=== PATIENT | male | born 1955 | race Caucasian/White ===

== ENCOUNTER 2021-11-07 17:04 | Inpatient (IN) | payer OTHER ==
[~2021-11-07] VITALS: Ht 182.9 cm; Wt 71.9 kg
[2021-11-07] MEDS: IV NORMAL SALINE 1000ML BAG 1,000 ML IV SCH (18:31)
[2021-11-07 19:50] VITALS: BP 96/59
[2021-11-07] MEDS: ONDANSETRON PF 4 MG/2 ML VIAL. IVP PRN (20:06)
[2021-11-07] MEDS: fentaNYL PF VIAL 100 MCG/2 ML VIAL IVP PRN (20:07)
[2021-11-07 23:12] VITALS: BP 83/56
[2021-11-08] VITALS (17 sets, daily range): BP systolic 79–97; BP diastolic 47–61
[2021-11-08] MEDS: IV NORMAL SALINE 1000ML BAG 1,000 ML IV SCH ×3 (01:37→19:53)
[2021-11-08] MEDS: fentaNYL PF VIAL 100 MCG/2 ML VIAL IVP PRN ×6 (01:43→22:08)
[2021-11-08 05:06] LABS: BASO # 0.1 x10^3/uL (0.0-0.2); BASO % 1 % (0-3); EOS % 0 % (0-3); HEMATOCRIT 20.5 % (39.0-53.0); LYMPH % 9 % (24-48); MEAN CORPUSCULAR HEMOGLOBIN 32 pg (25-35); MEAN CORPUSCULAR HGB CONC 33 g/dL (31-37); MEAN CORPUSCULAR VOLUME 95 fL (79-100); MONO # 0.9 x10^3/uL (0.0-1.1); MONO % 8 % (0-9); NEUT # 9.1 x10^3/uL (1.8-7.7); NEUT % 83 % (31-73); PLATELET COUNT 415 x10^3/uL (140-400); RED BLOOD COUNT 2.17 x10^6/uL (4.30-5.70); RED CELL DISTRIBUTION WIDTH 14.7 % (11.5-14.5)
[2021-11-08 05:12] LABS: HEMOGLOBIN 6.9 g/dL (13.0-17.5)
[2021-11-08] MEDS: ONDANSETRON PF 4 MG/2 ML VIAL. IVP PRN ×2 (05:34→11:45)
[2021-11-08 05:38] LABS: ALBUMIN 1.8 g/dL (3.4-5.0); ALBUMIN/GLOBULIN RATIO 0.5 (1.0-1.7); CALCIUM 7.6 mg/dL (8.5-10.1); CREATININE 1.7 mg/dL (0.7-1.3); GFR 40.9; POTASSIUM 4.1 mmol/L (3.5-5.1); TOTAL BILIRUBIN 0.1 mg/dL (0.2-1.0); TOTAL PROTEIN 5.3 g/dL (6.4-8.2)
[2021-11-08] MEDS ORDERED: CHOL10004 PO (07:45)
[2021-11-08] MEDS ORDERED: LISI20TA18 PO (07:45)
[2021-11-08] MEDS ORDERED: AMLO-187 PO (07:45)
[2021-11-08] MEDS ORDERED: FLU VACC QUAD 21-22 (6MOS+) PF 0.5 ML SYRINGE. VAX IM ONE (09:00)
--- NOTE | 2021-11-08 09:52 | PDOC2 ---
CONSULT Date of Service Date of Service DATE: 11/08/21 TIME: 09:39 Reason for Consult Reason for Consult: Left subclavian artery stenosis vs dissection Referring Physician Referring Physician: Dr. Bernabe Identification/Chief Complaint Chief Complaint abdominal pain History of Present Illness Reason for Visit: This is a 65 yo M with hx of colectomy and colstomy for hx of rectal cancer. He was admitted from [facility] ER for abdominal pain and acute kidney injury with Creatinine of 2.4 He deneis any recent TIA, amaurosis, stroke or weakness or numbness of an extremity. He is left handed. He denies any history of pain or ulcerations in the left hand. He denies any pain with exertion of the left hand. He is not currently taking any lipid lowering agents. He is not taking an aspirin. He reports normotension at baseline. Past Medical History Cardiovascular: No pertinent hx GI: Other (colostomy/rectal cancer) Renal/: Other (hx of ureteral injury) Past Surgical History Past Surgical History: Colon Resection Family History Family History: High Cholestrol Social History 1 pack per day ALCOHOL: rare Drugs: None Current Medications Current Medications Current Medications Ondansetron HCl (Zofran) 4 mg PRN Q6HRS PRN IVP NAUSEA/VOMITING Last administered on 11/08/21at 05:34; Start 11/07/21 at 17:45 Fentanyl Citrate (Fentanyl 2ml Vial) 50 mcg PRN Q3HRS PRN IVP PAIN Last administered on 11/08/21at 07:40; Start 11/07/21 at 17:45 Sodium Chloride 1,000 ml @ 125 mls/hr Q8H IV Last administered on 11/08/21at 01:37; Start 11/07/21 at 17:45 Influenza Virus Vaccine Quadrival (Flulaval Quad [id number] Syringe) 0.5 ml ONCE ONCE VAX IM ; Start 11/08/21 at 09:00; Stop 11/08/21 at 09:01; Status DC Active Scripts Active Reported Vitamin D3 (Vitamin D) 25 Mcg Tablet 50 Mcg PO DAILY 1,000 UNITS = 25 MCG Amlodipine Besylate 10 Mg Tablet 10 Mg PO DAILY Lisinopril 20 Mg Tablet 20 Mg PO DAILY Allergies Allergies: Coded Allergies: No Known Drug Allergies (Unverified , 11/07/21) ROS General: No: Chills, Night Sweats PSYCHOLOGICAL ROS: No: Disorientation Eyes: No Blurry vision, No Decreased vision HEENT: No: Heacaches, Visual Changes ALLERGY AND IMMUNOLOGY: No: Hives, Itchy/Watery Eyes Hematological and Lymphatic: No: Bleeding Problems, Blood Clots Respiratory: No: Cough, Hemoptysis, Orthopnea Cardiovascular: No Chest Pain, No Palpitations Gastrointestinal: Yes Abdominal Pain; No Nausea, No Vomiting Genitourinary: YES Retention Musculoskeletal: No Joint Pain, No Joint Stiffness Skin: No Nail Changes, No Pruritus Physical Exam General: Alert, Oriented X3 HEENT: Atraumatic, PERRLA Lungs: Normal air movement, Other (symmetric expansion, nonlabored) Heart: Regular rate, Other (RRR) Abdomen: Other (Colostomy with gas and stool in bag. nondistended) Extremities: No clubbing, No cyanosis, Other (2+ brachial and radial pulses bilaterally. 2+ femoral pulses bilaterally) Skin: No rashes, No significant lesion Neuro: Normal speech, Sensation intact Psych/Mental Status: Mental status NL Vitals VITALS Vital Signs Date Time Temp Pulse Resp B/P (MAP) Pulse Ox O2 Delivery O2 Flow Rate FiO2 11/08/21 08:59 98.0 106 23 80/47 98.0 11/08/21 08:50 94 Room Air Labs Labs Laboratory Tests Test 11/08/21 03:40 White Blood Count 11.0 x10^3/uL (4.0-11.0) Red Blood Count 2.17 x10^6/uL (4.30-5.70) Hemoglobin 6.9 g/dL (13.0-17.5) Hematocrit 20.5 % (39.0-53.0) Mean Corpuscular Volume 95 fL (79-100) Mean Corpuscular Hemoglobin 32 pg (25-35) Mean Corpuscular Hemoglobin Concent 33 g/dL (31-37) Red Cell Distribution Width 14.7 % (11.5-14.5) Platelet Count 415 x10^3/uL (140-400) Neutrophils (%) (Auto) 83 % (31-73) Lymphocytes (%) (Auto) 9 % (24-48) Monocytes (%) (Auto) 8 % (0-9) Eosinophils (%) (Auto) 0 % (0-3) Basophils (%) (Auto) 1 % (0-3) Neutrophils # (Auto) 9.1 x10^3/uL (1.8-7.7) Lymphocytes # (Auto) 1.0 x10^3/uL (1.0-4.8) Monocytes # (Auto) 0.9 x10^3/uL (0.0-1.1) Eosinophils # (Auto) 0.0 x10^3/uL (0.0-0.7) Basophils # (Auto) 0.1 x10^3/uL (0.0-0.2) Sodium Level 131 mmol/L (136-145) Potassium Level 4.1 mmol/L (3.5-5.1) Chloride Level 100 mmol/L (98-107) Carbon Dioxide Level 23 mmol/L (21-32) Anion Gap 8 (6-14) Blood Urea Nitrogen 64 mg/dL (8-26) Creatinine 1.7 mg/dL (0.7-1.3) Estimated GFR (Cockcroft-Gault) 40.9 BUN/Creatinine Ratio 38 (6-20) Glucose Level 86 mg/dL (70-99) Calcium Level 7.6 mg/dL (8.5-10.1) Total Bilirubin 0.1 mg/dL (0.2-1.0) Aspartate Amino Transf (AST/SGOT) 16 U/L (15-37) Alanine Aminotransferase (ALT/SGPT) 18 U/L (16-63) Alkaline Phosphatase 47 U/L (46-116) Total Protein 5.3 g/dL (6.4-8.2) Albumin 1.8 g/dL (3.4-5.0) Albumin/Globulin Ratio 0.5 (1.0-1.7) Laboratory Tests Test 11/08/21 03:40 White Blood Count 11.0 x10^3/uL (4.0-11.0) Red Blood Count 2.17 x10^6/uL (4.30-5.70) Hemoglobin 6.9 g/dL (13.0-17.5) Hematocrit 20.5 % (39.0-53.0) Mean Corpuscular Volume 95 fL (79-100) Mean Corpuscular Hemoglobin 32 pg (25-35) Mean Corpuscular Hemoglobin Concent 33 g/dL (31-37) Red Cell Distribution Width 14.7 % (11.5-14.5) Platelet Count 415 x10^3/uL (140-400) Neutrophils (%) (Auto) 83 % (31-73) Lymphocytes (%) (Auto) 9 % (24-48) Monocytes (%) (Auto) 8 % (0-9) Eosinophils (%) (Auto) 0 % (0-3) Basophils (%) (Auto) 1 % (0-3) Neutrophils # (Auto) 9.1 x10^3/uL (1.8-7.7) Lymphocytes # (Auto) 1.0 x10^3/uL (1.0-4.8) Monocytes # (Auto) 0.9 x10^3/uL (0.0-1.1) Eosinophils # (Auto) 0.0 x10^3/uL (0.0-0.7) Basophils # (Auto) 0.1 x10^3/uL (0.0-0.2) Sodium Level 131 mmol/L (136-145) Potassium Level 4.1 mmol/L (3.5-5.1) Chloride Level 100 mmol/L (98-107) Carbon Dioxide Level 23 mmol/L (21-32) Anion Gap 8 (6-14) Blood Urea Nitrogen 64 mg/dL (8-26) Creatinine 1.7 mg/dL (0.7-1.3) Estimated GFR (Cockcroft-Gault) 40.9 BUN/Creatinine Ratio 38 (6-20) Glucose Level 86 mg/dL (70-99) Calcium Level 7.6 mg/dL (8.5-10.1) Total Bilirubin 0.1 mg/dL (0.2-1.0) Aspartate Amino Transf (AST/SGOT) 16 U/L (15-37) Alanine Aminotransferase (ALT/SGPT) 18 U/L (16-63) Alkaline Phosphatase 47 U/L (46-116) Total Protein 5.3 g/dL (6.4-8.2) Albumin 1.8 g/dL (3.4-5.0) Albumin/Globulin Ratio 0.5 (1.0-1.7) Images Images I reviewed the CT images form [place] with CTA of the chest abdomen and pelvis. THere is a focal plaque in the left subclavian artery causing approximately 50% narrowing. There are no other findings of significance Assessment/Plan Assessment/Plan 1. Asymptomatic left subclavian artery stenosis 2. Acute kidney injury The patient is asymptomatic form the focal narrowing of the left subclavian artery and he has a strong pulse in the left hand his dominant hand. He has had no atheroembolic events to the left hand. Not clear to me that this is a dissection as there was concern from the reading radiologist. There is no evidence of aneurysm or other abnormality. Given there are no symptoms would recommend medical management with baby aspirin daily, smoking cessation and consideration of lipid lower agents now that we have identified asymptomatic peripheral arterial disease. Also important to maintain systolic blood pressure less that 140 for group home cardiovascular risk reduction. Will schedule follow up with repeat arterial duplex of the left arm to monitor in 4-6 months. Will continue to monitor symptoms. Patient encouraged to call should he develop exertional fatigue of the left hand. It will be important to obtain lipid profile as outpatient with goal LDL <70. AMOR LAINEZ MD Nov 08, 2021 09:52
--- NOTE | 2021-11-08 11:00 | PDOC2 ---
CONSULT Date of Consult Date of Consult DATE: 11/08/21 TIME: 10:53 Reason for Consult Reason for Consult: ERINN Referring Physician Referring Physician: JOS Identification/Chief Complaint Chief Complaint ABD PAIN Source Source: Chart review, Patient History of Present Illness Reason for Visit: THIS IS A 65 YR OLD MAN WITH ABD PAIN. ADMITTED INITIALLY AT [facility] IN [place]. CR OF 2.4. NO CKD. PT STATES THAT HE HAS NOT BEEN EATING MUCH SINCE PAST SATURDAY WHEN HE ATE A HOT DOG. SINCE THEN NO APPETITE. HE DOES HAVE AN OSTOMY AFTER RESECTION FOR RECTAL CANCER. HE HAS NOT NOTED ANY INCREASE IN HIS OSTOMY OUTPUT. CR HERE IS 1.7. NO OTHER HX REPORTED. HAD A CT AT [facility] AND INCIDENTALLY NOTED TO HAVE 50% STENOSIS OF HIS LEFT SUBCLAVIAN ARTERY BUT NO STEAL SYMPTOMS. CURRENTLY BEING EVALUATED BY VASCULAR SURGERY FOR THIS. HGB OF 6.9. FOR HIS RECTAL CANCER HE DID UNDERGO CHEMO AND RAD TX ABOUT 10 YEARS AGO Past Medical History Cardiovascular: HTN GI: Other (colostomy/rectal cancer) Heme/Onc: Cancer Renal/: No pertinent hx, Other (hx of ureteral injury) Past Surgical History Past Surgical History: Colon Resection Family History Family History: High Cholestrol Social History 1 pack per day ALCOHOL: rare Drugs: None Current Medications Current Medications Current Medications Ondansetron HCl (Zofran) 4 mg PRN Q6HRS PRN IVP NAUSEA/VOMITING Last administered on 11/08/21at 05:34; Start 11/07/21 at 17:45 Fentanyl Citrate (Fentanyl 2ml Vial) 50 mcg PRN Q3HRS PRN IVP PAIN Last administered on 11/08/21at 07:40; Start 11/07/21 at 17:45 Sodium Chloride 1,000 ml @ 125 mls/hr Q8H IV Last administered on 11/08/21at 01:37; Start 11/07/21 at 17:45 Influenza Virus Vaccine Quadrival (Flulaval Quad Syringe) 0.5 ml ONCE ONCE VAX IM ; Start 11/08/21 at 09:00; Stop 11/08/21 at 09:01; Status DC Active Scripts Active Reported Vitamin D3 (Vitamin D) 25 Mcg Tablet 50 Mcg PO DAILY 1,000 UNITS = 25 MCG Amlodipine Besylate 10 Mg Tablet 10 Mg PO DAILY Lisinopril 20 Mg Tablet 20 Mg PO DAILY Allergies Allergies: Coded Allergies: No Known Drug Allergies (Unverified , 11/07/21) ROS General: YES: Fatigue, Malaise, Appetite PSYCHOLOGICAL ROS: YES: Anxiety Eyes: Yes Decreased vision ALLERGY AND IMMUNOLOGY: YES: Seasonal Allergies Respiratory: YES: Cough Gastrointestinal: Yes Nausea, Yes Abdominal Pain Genitourinary: YES Other (OCC NOCTURIA) Musculoskeletal: Yes Muscular Weakness Neurological: Yes Weakness Skin: Yes Dry Skin Physical Exam General: Alert, Oriented X3, Cooperative, No acute distress HEENT: Atraumatic, PERRLA Lungs: Clear to auscultation Heart: Regular rate Abdomen: Normal bowel sounds, Soft, No tenderness, Other (OSTOMY BAG NOTED. SOME LIQUID STOOL NOTED) Extremities: No cyanosis Skin: No breakdown Neuro: Normal speech Psych/Mental Status: Mental status NL, Mood NL MUSCULOSKELETAL: No joint tenderness, No deformity Vitals VITALS Vital Signs Date Time Temp Pulse Resp B/P (MAP) Pulse Ox O2 Delivery O2 Flow Rate FiO2 11/08/21 09:58 98.0 111 22 90/51 98.0 11/08/21 08:50 94 Room Air Labs Labs Laboratory Tests Test 11/08/21 03:40 White Blood Count 11.0 x10^3/uL (4.0-11.0) Red Blood Count 2.17 x10^6/uL (4.30-5.70) Hemoglobin 6.9 g/dL (13.0-17.5) Hematocrit 20.5 % (39.0-53.0) Mean Corpuscular Volume 95 fL (79-100) Mean Corpuscular Hemoglobin 32 pg (25-35) Mean Corpuscular Hemoglobin Concent 33 g/dL (31-37) Red Cell Distribution Width 14.7 % (11.5-14.5) Platelet Count 415 x10^3/uL (140-400) Neutrophils (%) (Auto) 83 % (31-73) Lymphocytes (%) (Auto) 9 % (24-48) Monocytes (%) (Auto) 8 % (0-9) Eosinophils (%) (Auto) 0 % (0-3) Basophils (%) (Auto) 1 % (0-3) Neutrophils # (Auto) 9.1 x10^3/uL (1.8-7.7) Lymphocytes # (Auto) 1.0 x10^3/uL (1.0-4.8) Monocytes # (Auto) 0.9 x10^3/uL (0.0-1.1) Eosinophils # (Auto) 0.0 x10^3/uL (0.0-0.7) Basophils # (Auto) 0.1 x10^3/uL (0.0-0.2) Sodium Level 131 mmol/L (136-145) Potassium Level 4.1 mmol/L (3.5-5.1) Chloride Level 100 mmol/L (98-107) Carbon Dioxide Level 23 mmol/L (21-32) Anion Gap 8 (6-14) Blood Urea Nitrogen 64 mg/dL (8-26) Creatinine 1.7 mg/dL (0.7-1.3) Estimated GFR (Cockcroft-Gault) 40.9 BUN/Creatinine Ratio 38 (6-20) Glucose Level 86 mg/dL (70-99) Calcium Level 7.6 mg/dL (8.5-10.1) Total Bilirubin 0.1 mg/dL (0.2-1.0) Aspartate Amino Transf (AST/SGOT) 16 U/L (15-37) Alanine Aminotransferase (ALT/SGPT) 18 U/L (16-63) Alkaline Phosphatase 47 U/L (46-116) Total Protein 5.3 g/dL (6.4-8.2) Albumin 1.8 g/dL (3.4-5.0) Albumin/Globulin Ratio 0.5 (1.0-1.7) Laboratory Tests Test 11/08/21 03:40 White Blood Count 11.0 x10^3/uL (4.0-11.0) Red Blood Count 2.17 x10^6/uL (4.30-5.70) Hemoglobin 6.9 g/dL (13.0-17.5) Hematocrit 20.5 % (39.0-53.0) Mean Corpuscular Volume 95 fL (79-100) Mean Corpuscular Hemoglobin 32 pg (25-35) Mean Corpuscular Hemoglobin Concent 33 g/dL (31-37) Red Cell Distribution Width 14.7 % (11.5-14.5) Platelet Count 415 x10^3/uL (140-400) Neutrophils (%) (Auto) 83 % (31-73) Lymphocytes (%) (Auto) 9 % (24-48) Monocytes (%) (Auto) 8 % (0-9) Eosinophils (%) (Auto) 0 % (0-3) Basophils (%) (Auto) 1 % (0-3) Neutrophils # (Auto) 9.1 x10^3/uL (1.8-7.7) Lymphocytes # (Auto) 1.0 x10^3/uL (1.0-4.8) Monocytes # (Auto) 0.9 x10^3/uL (0.0-1.1) Eosinophils # (Auto) 0.0 x10^3/uL (0.0-0.7) Basophils # (Auto) 0.1 x10^3/uL (0.0-0.2) Sodium Level 131 mmol/L (136-145) Potassium Level 4.1 mmol/L (3.5-5.1) Chloride Level 100 mmol/L (98-107) Carbon Dioxide Level 23 mmol/L (21-32) Anion Gap 8 (6-14) Blood Urea Nitrogen 64 mg/dL (8-26) Creatinine 1.7 mg/dL (0.7-1.3) Estimated GFR (Cockcroft-Gault) 40.9 BUN/Creatinine Ratio 38 (6-20) Glucose Level 86 mg/dL (70-99) Calcium Level 7.6 mg/dL (8.5-10.1) Total Bilirubin 0.1 mg/dL (0.2-1.0) Aspartate Amino Transf (AST/SGOT) 16 U/L (15-37) Alanine Aminotransferase (ALT/SGPT) 18 U/L (16-63) Alkaline Phosphatase 47 U/L (46-116) Total Protein 5.3 g/dL (6.4-8.2) Albumin 1.8 g/dL (3.4-5.0) Albumin/Globulin Ratio 0.5 (1.0-1.7) Assessment/Plan Assessment/Plan IMP ERINN-CR OF 2.4-NO KNOWN CKD DEHYDRATION ABD PAIN HX OF RECTAL CANCER S/P RESECTION AND OSTOMY HX OF HTN L SUBCLAVIAN ARTERY STENOSIS ANEMIA-HGB OF 6.9 PLAN HOLD HIS DONATO-I HYDRATION VASCULAR SURGERY EVAL CONSIDER GI EVAL MAY NEED PRBC RENAL SONO IF CR DOES NOT CONTINUE TO IMPROVE WILL FOLLOW LUIS PEREZ MD Nov 08, 2021 11:00
[2021-11-08] MEDS ORDERED: IV NORMAL SALINE 1000ML BAG 1,000 ML IV ONE (11:45)
[2021-11-08] MEDS: PANTOPRAZOLE SODIUM IV DRIP 80 MG in IV NORMAL SALINE 100ML 100 ML IV SCH ×2 (12:07→20:06)
--- NOTE | 2021-11-08 12:11 | HP ---
DATE OF SERVICE: 11/08/2021 ADMIT DATE: 11/07/2021 HISTORY OF PRESENT ILLNESS: The patient is a 65-year-old male patient who presented to the Emergency Room of [facility] with abdominal pain around the umbilical area started the morning of admission. He rated his pain as 2/10, described it as cramping pain. The patient reported he is also experiencing lightheadedness that is worse with position changes and nausea and vomiting. The patient reported that he vomited 2 times the day before he arrived to the Emergency Room, he was discharged from the [facility] on 10/13 for urinary tract infection and was discharged with a Dow catheter because he was unable to urinate. He reported that the Dow catheter was placed on 10/10. He reports that they placed his colostomy in 2010 due to his rectal cancer that was resected and has had a colostomy. He also reported damage to his ureter that has a history of urinary retention. He stated that his rectal cancer is in remission. He denied any change in the consistency of his output and his colostomy bag report that it is decreased down, it is normally, but he has reported that he got decreased appetite. He denies any diarrhea or blood in his stool or vomit. He was extensively investigated in the Emergency Room of [facility], has had lab work and imaging studies. His lab work showed that he has normochromic normocytic anemia, leukocytosis and thrombocytosis. His chemistry showed that his BUN was 66, creatinine 2.4. Urinalysis was essentially unremarkable and his coronavirus by rapid antigen testing was negative. He underwent a CT scan of the chest, abdomen and pelvis and the CT angio of the chest, abdomen and pelvis showed that the patient has no aortic aneurysm, dissection or hematoma. He was found to have left distal subclavian artery filling defects may represent focal dissection with approximately 50% stenosis. He has right lower lobe pulmonary nodule measuring 1.2 x 0.7 cm correlation with tissue be made with prior imaging, cannot exclude metastatic disease and with history of prior malignancy. The radiologist recommended follow up per Oncology protocol. He was found to have thickening of the distal esophagus with small sliding hiatal hernia. He has also a peristomal hernia of small bowel without evidence of obstruction. Multiple hypodensities in the liver, too small to characterize. Recommend correlation with prior examination. Additionally, suspect post-treatment changes in the presacral space, status post partial colectomy. Recommend correlation with prior imaging. The patient also was found to have [id number] emphysematous changes. The patient was transferred to [facility] to consult the vascular surgeon regarding his left distal subclavian artery stenosis as might be the reason for his dizziness. PAST MEDICAL HISTORY: Significant for hypertension and rectal cancer that was resected in 2010 and underwent a colostomy. PAST SURGICAL HISTORY: Partial colectomy and colostomy, bilateral inguinal hernia repair as well as appendectomy. ALLERGIES: He has no known drug allergies. MEDICATIONS: He is on lisinopril, amlodipine and vitamin D. He also takes ibuprofen on a daily basis for generalized aches and pains. FAMILY HISTORY: His 1 older brother of cancer. Both parents are , but does not know their age or cause of their . SOCIAL HISTORY: He is , has grown up children. He smokes half a pack a day. He quit drinking alcohol only 2 weeks ago. He does not use any drugs. He is retired from the . REVIEW OF SYSTEMS: As per history of present illness. PHYSICAL EXAMINATION: GENERAL: On arrival to the Emergency Room, the patient looked well and was clearly in no apparent respiratory distress. He was somewhat pale, but not jaundiced, cyanosed, no lymphadenopathy, no thyromegaly, no jugular venous distention. No limb edema. VITAL SIGNS: His heart rate was 118, blood pressure is 102/60, temperature was 98.4, respiratory rate was 18 and oxygen saturation was 99%. HEAD, EYES, EARS, NOSE, AND THROAT: Normocephalic, atraumatic. NECK: Supple. HEART: Showed normal first and second heart sounds. No gallop or murmur. CHEST: Clear to auscultation, no crepitation or rhonchi. ABDOMEN: Distended, generally soft with tenderness around the colostomy. He has a colostomy in the left lower quadrant. There is no guarding or rigidity. No organomegaly. All hernial orifice intact. Bowel sounds normal. NEUROLOGIC: He was grossly intact. LABORATORY DATA: Showed a white cell count 14,500, hemoglobin 10, hematocrit 31, MCV 95 and platelet count 524,000 with automated differential showed 87% polymorphs, 6% lymphocytes and 7% monocytes. His chemistry showed a serum sodium 134, potassium 4.5, chloride 96, bicarbonate 25, anion gap of 13, BUN 66, creatinine 2.4. Estimated GFR was 27 mL per minute. His glucose 143, calcium was 9. Total bilirubin, AST, ALT, alkaline phosphatase were normal. Total protein 6.2, albumin was 2.4. His urinalysis showed the urine was yellow, turbid with a pH of more than 8.5, specific gravity of 1.010, there was large amount of protein. There is negative for glucose, ketones trace of blood, negative for nitrite. There was moderate amount of leukocyte esterase, 0 rbc's, 0 wbc's and 0 bacteria. IMAGING DATA: 1. Again, CT angio of the chest, abdomen and pelvis showed no aortic aneurysm or dissection or hematoma. 2. Left distal subclavian artery filling defect may represent focal dissection with approximately 50% stenosis. 3. Right lower lobe pulmonary nodule measuring 1.2 x 0.7 cm correlate with prior imaging, cannot exclude metastatic disease given history of prior malignancy. He also had thickening of the distal esophagus with small sliding hiatal hernia, correlate for esophagitis. 4. He has peristomal hernia of small bowel without evidence of obstruction. 5. Multiple hypodensities in the liver, too small to characterize and moderate to severe emphysematous changes. ASSESSMENT AND PLAN: The patient was unfortunately received contrast before the lab work becomes available and therefore, the patient was transferred to [facility] to consult the vascular surgeon and also robotics technologist. I did start him on IV fluid in the form of normal saline at 125 mL per minute. I held his lisinopril and continued his amlodipine. His blood pressure was low, I discontinued the amlodipine and lisinopril and will obviously repeat all his lab work and decide the further management accordingly. DIMPLE DR: Suni TID: [id number]
[2021-11-08 12:30] LABS: FECAL OB PT POSITIVE (NEG)
--- NOTE | 2021-11-08 13:10 | PN ---
DATE: 11/08/2021 SUBJECTIVE: The patient was seen yesterday at [facility] Emergency Room with a complaint of periumbilical abdominal pain. He describes as cramping pain rated as a 2/10. He also complained of some nausea and vomiting, but denied any hematemesis, melena or hematochezia. 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 He also has had contrast before the lab work was available and therefore there was obviously fear of contrast-induced nephropathy and the patient already was in bad kidney function so started him on IV fluid, held his lisinopril and amlodipine and consulted the post manager as well as the vascular surgeon; however, when I saw him this morning, his lab work showed that his hemoglobin has dropped down to 6.9; however, his BUN and creatinine are trending down at 64 and 1.7. He continued to be somewhat hypotensive and on questioning him further, he apparently was on ibuprofen and stool in his colostomy bag was maroon colored that we sent for fecal occult blood, therefore, we will keep him n.p.o. I will give him a bolus of normal saline and start him on Protonix drip and I have consulted the Gastroenterology team as well as surgical team as he continued to complain of pain around his colostomy area, although the CT scan showed a parastomal hernias without any obstruction. PHYSICAL EXAMINATION: GENERAL: When I saw him today, he was pale, but no jaundice, cyanosis or thyromegaly. No jugular venous distention. No lower limb edema. VITAL SIGNS: His heart rate was 111, blood pressure was 90/51, temperature was 98, respiratory rate was 22 and oxygen saturation was 94% on room air. HEAD, EYES, EARS, NOSE, AND THROAT: Normocephalic, atraumatic. NECK: Supple. HEART: Showed normal first and second heart sounds. No gallop, rub or murmur. CHEST: Clear to auscultation, no crepitation or rhonchi. ABDOMEN: Distended, soft, nontender. NEUROLOGIC: There was tenderness mostly around his colostomy area. There is no guarding or rigidity. No organomegaly. All hernial orifice intact and bowel sounds normal. NEUROLOGIC: He was grossly intact his lab work. His intake over the last 24 hours and output incompletely recorded. LABORATORY DATA: Showed his white cell count was down to 11,000, hemoglobin 6.9, hematocrit 20.5, MCV 95 and platelet count of 415,000. His chemistry showed a serum sodium 131, potassium 4.1, chloride 100, bicarbonate 23, anion gap of 8, BUN 64, creatinine 1.7. Estimated GFR was 40 mL per minute. His glucose was 86, calcium was 7.6. Total bilirubin, AST, ALT, alkaline phosphatase were normal. Total protein was 5.3, albumin was 1.8. ASSESSMENT: 1. Rectal carcinoma, status post resection and colostomy. 2. The patient presented with periumbilical abdominal pain and CT scan showed that he has parastomal hernias without any obstruction. 3. Complains of dizziness and CT angio of the chest, abdomen and pelvis showed that he has left distal subclavian artery stenosis for which he consulted the vascular surgeon. 4. He has right lower lobe pulmonary nodules that could be metastatic in nature. 5. He also developed acute blood loss anemia with hemoglobin dropped from 10 to 6.9, for which he received 1 unit of packed RBCs. He has also chronic versus acute on chronic kidney disease. He did receive contrast yesterday for a CT angio of the chest, abdomen or pelvis. PLAN: My plan is to obviously send stool for occult blood. I will bolus him with IV fluid and monitor his H and H every 6 hours. I have started him on Protonix drip, consulted the Gastroenterology team, the surgical team as well as the post manager, although his creatinine is turning the corner at least this morning is down to 1.7 from 2.4. He already has an indwelling Dow catheter and the CT scan showed no evidence of obstruction. NELY/WILIAM DR: Suni TID: [id number]
--- NOTE | 2021-11-08 13:26 | PDOC2 ---
GI CONSULT Date of Service: DATE: 11/08/21 TIME: 12:43 Reason For Consult: ?upper GI bleeding HPI: HPI: 65 y/o male w/ h/o rectal cancer/ostomy who tells me he went to [facility] ER w/ vomiting and lower abdominal cramps. Similar symptoms in early Oct. when admitted to [facility] for "dehydration." Says felt better at home for about a week (able to eat normally, no abdominal pain), then symptoms returned on Saturday. Vomited "black." On both occasions, not much changed as far as ostomy output goes - says usually empties bag every two days, denies hematochezia and melena. Sent to [facility] for asymptomatic left subclavian artery stenosis (plans by vascular surgery for medical management and recheck imaging in 4-6 months) and ERINN (improved, nephrology following). This morning had dark reddish output from ostomy. Hgb at [facility] was 10.3, today is 6.9. Hemoccult positive here. Rapid COVID negative @ [facility]. CTA C/A/P showed RLL pulm nodule, thickening of distal esophagus w/ small hiatal hernia, LLQ peristomal hernia w/ focally dialted SB loop (no obstruction), multiple hypodensities too small to characterize in liver, moderate to severe emphysema, rectal pouch and posttreatment changes in presacral space s/p partial colectomy, RLL pulm nodule, left distal subclavian artery filling defect w/ approximately 50 percent stenosis. Has been burping a lot, but denies reflux/heartburn, dysphagia, diarrhea, and constipation. Has lost 11 pounds since last month. No previous EGD he can recall but not really sure. As above, h/o rectal cancer s/p resection/ostomy and chemo/rad in 2010. Reports normal colonoscopy ~2 months ago @ [facility]. No GB, liver, pancreas, or PUD history. Daily Advil for some time. Transfusion and fluid bolus ordered, and vascular holding off on recommendation to start ASA for now. PMH: PMH: HTN, emphysema, rectal cancer s/p resection/chemo/rad bilateral inguinal hernia repair, appendectomy FH: Family History: No pertinent hx Social History: Smoke: <1 pack per day ALCOHOL: other (never a heavy drinker but quit altogether awhile ago) Drugs: None ROS: GEN: Denies fevers, chills, sweats HEENT: Denies blurred vision, sore throat CV: Denies chest pain RESP: Denies shortness of air, cough GI: Per HPI : Denies hematuria, dysuria ENDO: +weight loss NEURO: Denies confusion, dizziness MSK: Denies weakness, joint pain/swelling SKIN: Denies jaundice, pruritus Vitals: Vitals: Vital Signs Date Time Temp Pulse Resp B/P (MAP) Pulse Ox O2 Delivery O2 Flow Rate FiO2 11/08/21 12:05 98 Room Air 11/08/21 11:57 98.5 104 16 87/51 98.5 Labs: Labs: Laboratory Tests Test 11/08/21 03:40 11/08/21 11:17 White Blood Count 11.0 x10^3/uL (4.0-11.0) Red Blood Count 2.17 x10^6/uL (4.30-5.70) Hemoglobin 6.9 g/dL (13.0-17.5) Hematocrit 20.5 % (39.0-53.0) Mean Corpuscular Volume 95 fL (79-100) Mean Corpuscular Hemoglobin 32 pg (25-35) Mean Corpuscular Hemoglobin Concent 33 g/dL (31-37) Red Cell Distribution Width 14.7 % (11.5-14.5) Platelet Count 415 x10^3/uL (140-400) Neutrophils (%) (Auto) 83 % (31-73) Lymphocytes (%) (Auto) 9 % (24-48) Monocytes (%) (Auto) 8 % (0-9) Eosinophils (%) (Auto) 0 % (0-3) Basophils (%) (Auto) 1 % (0-3) Neutrophils # (Auto) 9.1 x10^3/uL (1.8-7.7) Lymphocytes # (Auto) 1.0 x10^3/uL (1.0-4.8) Monocytes # (Auto) 0.9 x10^3/uL (0.0-1.1) Eosinophils # (Auto) 0.0 x10^3/uL (0.0-0.7) Basophils # (Auto) 0.1 x10^3/uL (0.0-0.2) Sodium Level 131 mmol/L (136-145) Potassium Level 4.1 mmol/L (3.5-5.1) Chloride Level 100 mmol/L (98-107) Carbon Dioxide Level 23 mmol/L (21-32) Anion Gap 8 (6-14) Blood Urea Nitrogen 64 mg/dL (8-26) Creatinine 1.7 mg/dL (0.7-1.3) Estimated GFR (Cockcroft-Gault) 40.9 BUN/Creatinine Ratio 38 (6-20) Glucose Level 86 mg/dL (70-99) Calcium Level 7.6 mg/dL (8.5-10.1) Total Bilirubin 0.1 mg/dL (0.2-1.0) Aspartate Amino Transf (AST/SGOT) 16 U/L (15-37) Alanine Aminotransferase (ALT/SGPT) 18 U/L (16-63) Alkaline Phosphatase 47 U/L (46-116) Total Protein 5.3 g/dL (6.4-8.2) Albumin 1.8 g/dL (3.4-5.0) Albumin/Globulin Ratio 0.5 (1.0-1.7) Stool Occult Blood Positive (NEG) Allergies: Coded Allergies: No Known Drug Allergies (Unverified , 11/07/21) Medications: Current Medications Medications (Trade) Dose Ordered Sig/Lizbeth Route PRN Reason Start Time Stop Time Status Last Admin Dose Admin Ondansetron HCl (Zofran) 4 mg PRN Q6HRS PRN IVP NAUSEA/VOMITING 11/07/21 17:45 11/08/21 11:45 Fentanyl Citrate (Fentanyl 2ml Vial) 50 mcg PRN Q3HRS PRN IVP PAIN 11/07/21 17:45 11/08/21 11:23 Sodium Chloride 1,000 ml @ 150 mls/hr Q6H40M IV 11/07/21 17:45 11/08/21 01:37 Pantoprazole Sodium 80 mg/ Sodium Chloride 100 ml @ 10 mls/hr Q10H IV 11/08/21 12:00 11/08/21 12:07 Sodium Chloride 1,000 ml @ 1,000 mls/hr 1X ONCE IV 11/08/21 11:45 11/08/21 12:44 11/08/21 11:45 Imaging: Imaging: per HPI PE: GEN: thin, NAD - BP 87/51 when I was in room HEENT: Atraumatic, PERRL LUNGS: diminished anteriorly HEART: HR 105 ABD: quiet BS, soft, non-distended, LLQ ostomy watery black w/ reddish tint EXTREMITY: No edema SKIN: No rashes, no jaundice NEURO/PSYCH: A & O 3, anxious A/P: A/P: Vomiting, abdominal cramps, burping - recurrent w/ weight loss ERINN (better), asymptomatic left subclavian artery stenosis (vascular saw) Melena/hematochezia - first occurred this morning Anemia (Hgb dropping), +Hemoccult H/o rectal cancer s/p resection/ostomy, chemo/rad (2010 @ [facility]) CRC screen - reports normal colonoscopy ~2 months ago Distal esophageal thickening and multiple hypodensities in liver on CT Daily NSAIDs Rapid COVID negative -- Since I have seen, Hgb has drift more to 5.6. D/w Dr. Bernabe, Dr. Rojo, nurse Leyla, and Ashley in GI lab (who d/w anesthesia) - tentatively planning for EGD tomorrow at 2:30 p.m. Agree w/ transfusions to keep Hgb > 7, NPO, PPI, close monitoring. SOHAM CHRISTIANSON Nov 08, 2021 13:26
--- NOTE | 2021-11-08 13:43 | NUR ---
SW following. Discussed with RN, pt from home with , room air, clear liquid diet. Nephrology and Vascular following. Hgb low today - pt getting blood. RN advised no SW needs at this time. SW will continue to follow.
--- NOTE | 2021-11-08 19:02 | PDOC2 ---
CONSULT Date of Consult Date of Consult DATE: 11/08/21 TIME: 18:58 Reason for Consult Reason for Consult: parastomal hernia Referring Physician Referring Physician: Dr. Bernabe Identification/Chief Complaint Chief Complaint abd pain, Source Source: Chart review, Patient History of Present Illness Reason for Visit: 65 yo M with hx of rectal cancer presents with c/o abd pain. Pt actually reports feeling much better now. Denies significant abd pain. Past Medical History Cardiovascular: HTN GI: Other (colostomy/rectal cancer) Heme/Onc: Cancer Renal/: No pertinent hx, Other (hx of ureteral injury) Past Surgical History Past Surgical History: Colon Resection Family History Family History: High Cholestrol Social History <1 pack per day ALCOHOL: other (never a heavy drinker but quit altogether awhile ago) Drugs: None Current Medications Current Medications Current Medications Ondansetron HCl (Zofran) 4 mg PRN Q6HRS PRN IVP NAUSEA/VOMITING Last administered on 11/08/21at 11:45; Start 11/07/21 at 17:45 Fentanyl Citrate (Fentanyl 2ml Vial) 50 mcg PRN Q3HRS PRN IVP PAIN Last administered on 11/08/21at 11:23; Start 11/07/21 at 17:45 Sodium Chloride 1,000 ml @ 150 mls/hr Q6H40M IV Last administered on 11/08/21at 12:56; Start 11/07/21 at 17:45 Influenza Virus Vaccine Quadrival (Flulaval Quad [id number] Syringe) 0.5 ml ONCE ONCE VAX IM ; Start 11/08/21 at 09:00; Stop 11/08/21 at 09:01; Status DC Pantoprazole Sodium 80 mg/ Sodium Chloride 100 ml @ 10 mls/hr Q10H IV Last administered on 11/08/21at 12:07; Start 11/08/21 at 12:00 Sodium Chloride 1,000 ml @ 1,000 mls/hr 1X ONCE IV Last administered on 11/08/21at 11:45; Start 11/08/21 at 11:45; Stop 11/08/21 at 12:44; Status DC Ringer's Solution 1,000 ml @ 50 mls/hr Q20H IV ; Start 11/09/21 at 07:00; Stop 11/09/21 at 18:59 Active Scripts Active Reported Vitamin D3 (Vitamin D) 25 Mcg Tablet 50 Mcg PO DAILY 1,000 UNITS = 25 MCG Amlodipine Besylate 10 Mg Tablet 10 Mg PO DAILY Lisinopril 20 Mg Tablet 20 Mg PO DAILY Allergies Allergies: Coded Allergies: No Known Drug Allergies (Unverified , 11/07/21) ROS Gastrointestinal: Yes Abdominal Pain, Yes Hematochezia Physical Exam General: Alert, Oriented X3, Cooperative, No acute distress HEENT: Atraumatic Lungs: Normal air movement Abdomen: Soft, No tenderness, Other (LLQ ostomy with flatus and bloody stools) Extremities: No clubbing, No cyanosis Skin: No rashes, No breakdown Neuro: Normal speech, Sensation intact Psych/Mental Status: Mental status NL, Mood NL Vitals VITALS Vital Signs Date Time Temp Pulse Resp B/P (MAP) Pulse Ox O2 Delivery O2 Flow Rate FiO2 11/08/21 18:28 97.8 94 15 83/53 97.8 11/08/21 15:00 99 Room Air Labs Labs Laboratory Tests Test 11/08/21 03:40 11/08/21 11:17 11/08/21 12:15 White Blood Count 11.0 x10^3/uL (4.0-11.0) Red Blood Count 2.17 x10^6/uL (4.30-5.70) Hemoglobin 6.9 g/dL (13.0-17.5) 5.6 g/dL (13.0-17.5) Hematocrit 20.5 % (39.0-53.0) Mean Corpuscular Volume 95 fL (79-100) Mean Corpuscular Hemoglobin 32 pg (25-35) Mean Corpuscular Hemoglobin Concent 33 g/dL (31-37) Red Cell Distribution Width 14.7 % (11.5-14.5) Platelet Count 415 x10^3/uL (140-400) Neutrophils (%) (Auto) 83 % (31-73) Lymphocytes (%) (Auto) 9 % (24-48) Monocytes (%) (Auto) 8 % (0-9) Eosinophils (%) (Auto) 0 % (0-3) Basophils (%) (Auto) 1 % (0-3) Neutrophils # (Auto) 9.1 x10^3/uL (1.8-7.7) Lymphocytes # (Auto) 1.0 x10^3/uL (1.0-4.8) Monocytes # (Auto) 0.9 x10^3/uL (0.0-1.1) Eosinophils # (Auto) 0.0 x10^3/uL (0.0-0.7) Basophils # (Auto) 0.1 x10^3/uL (0.0-0.2) Sodium Level 131 mmol/L (136-145) Potassium Level 4.1 mmol/L (3.5-5.1) Chloride Level 100 mmol/L (98-107) Carbon Dioxide Level 23 mmol/L (21-32) Anion Gap 8 (6-14) Blood Urea Nitrogen 64 mg/dL (8-26) Creatinine 1.7 mg/dL (0.7-1.3) Estimated GFR (Cockcroft-Gault) 40.9 BUN/Creatinine Ratio 38 (6-20) Glucose Level 86 mg/dL (70-99) Calcium Level 7.6 mg/dL (8.5-10.1) Total Bilirubin 0.1 mg/dL (0.2-1.0) Aspartate Amino Transf (AST/SGOT) 16 U/L (15-37) Alanine Aminotransferase (ALT/SGPT) 18 U/L (16-63) Alkaline Phosphatase 47 U/L (46-116) Total Protein 5.3 g/dL (6.4-8.2) Albumin 1.8 g/dL (3.4-5.0) Albumin/Globulin Ratio 0.5 (1.0-1.7) Stool Occult Blood Positive (NEG) Laboratory Tests Test 11/08/21 03:40 11/08/21 11:17 11/08/21 12:15 White Blood Count 11.0 x10^3/uL (4.0-11.0) Red Blood Count 2.17 x10^6/uL (4.30-5.70) Hemoglobin 6.9 g/dL (13.0-17.5) 5.6 g/dL (13.0-17.5) Hematocrit 20.5 % (39.0-53.0) Mean Corpuscular Volume 95 fL (79-100) Mean Corpuscular Hemoglobin 32 pg (25-35) Mean Corpuscular Hemoglobin Concent 33 g/dL (31-37) Red Cell Distribution Width 14.7 % (11.5-14.5) Platelet Count 415 x10^3/uL (140-400) Neutrophils (%) (Auto) 83 % (31-73) Lymphocytes (%) (Auto) 9 % (24-48) Monocytes (%) (Auto) 8 % (0-9) Eosinophils (%) (Auto) 0 % (0-3) Basophils (%) (Auto) 1 % (0-3) Neutrophils # (Auto) 9.1 x10^3/uL (1.8-7.7) Lymphocytes # (Auto) 1.0 x10^3/uL (1.0-4.8) Monocytes # (Auto) 0.9 x10^3/uL (0.0-1.1) Eosinophils # (Auto) 0.0 x10^3/uL (0.0-0.7) Basophils # (Auto) 0.1 x10^3/uL (0.0-0.2) Sodium Level 131 mmol/L (136-145) Potassium Level 4.1 mmol/L (3.5-5.1) Chloride Level 100 mmol/L (98-107) Carbon Dioxide Level 23 mmol/L (21-32) Anion Gap 8 (6-14) Blood Urea Nitrogen 64 mg/dL (8-26) Creatinine 1.7 mg/dL (0.7-1.3) Estimated GFR (Cockcroft-Gault) 40.9 BUN/Creatinine Ratio 38 (6-20) Glucose Level 86 mg/dL (70-99) Calcium Level 7.6 mg/dL (8.5-10.1) Total Bilirubin 0.1 mg/dL (0.2-1.0) Aspartate Amino Transf (AST/SGOT) 16 U/L (15-37) Alanine Aminotransferase (ALT/SGPT) 18 U/L (16-63) Alkaline Phosphatase 47 U/L (46-116) Total Protein 5.3 g/dL (6.4-8.2) Albumin 1.8 g/dL (3.4-5.0) Albumin/Globulin Ratio 0.5 (1.0-1.7) Stool Occult Blood Positive (NEG) Images Images CT reported to have parastomal hernia, but without obstruction Assessment/Plan Assessment/Plan Parastomal hernia does not appear to be obstructing, would not favor surgical repair. Pt does represent poor surgical candidate agree with w/u of GI bleeding per GI. Thanks for consult! DARA ESTES MD Nov 08, 2021 19:02
[2021-11-09] VITALS (11 sets, daily range): BP systolic 83–153; BP diastolic 52–115
[2021-11-09] MEDS: IV NORMAL SALINE 1000ML BAG 1,000 ML IV SCH ×4 (02:15→21:21)
[2021-11-09] MEDS: PANTOPRAZOLE SODIUM IV DRIP 80 MG in IV NORMAL SALINE 100ML 100 ML IV SCH ×2 (05:24→18:03)
[2021-11-09] MEDS ORDERED: IV RINGERS,LACTATED 1000ML 1,000 ML IV SCH (07:00)
[2021-11-09 08:07] LABS: HEMATOCRIT 20.3 % (39.0-53.0); RED BLOOD COUNT 2.18 x10^6/uL (4.30-5.70); RED CELL DISTRIBUTION WIDTH 17.6 % (11.5-14.5); WHITE BLOOD COUNT 9.7 x10^3/uL (4.0-11.0)
[2021-11-09 08:24] LABS: ALBUMIN 1.4 g/dL (3.4-5.0); ALBUMIN/GLOBULIN RATIO 0.5 (1.0-1.7); CREATININE 1.4 mg/dL (0.7-1.3); GFR 51.2; POTASSIUM 4.3 mmol/L (3.5-5.1); TOTAL BILIRUBIN 0.3 mg/dL (0.2-1.0); TOTAL PROTEIN 4.1 g/dL (6.4-8.2)
[2021-11-09 08:29] LABS: HEMOGLOBIN 6.8 g/dL (13.0-17.5)
--- NOTE | 2021-11-09 09:09 | PDOC ---
RAUL ROD GED TUTOR 11/09/21 0909: SURGICAL PROGRESS NOTE DATE: 11/09/21 TIME: 09:07 Subjective resting wants to go home tomorrow denies concerns Vital Signs Vital Signs Date Time Temp Pulse Resp B/P (MAP) Pulse Ox O2 Delivery O2 Flow Rate FiO2 11/09/21 07:00 97.8 91 18 83/52 (62) 96 Room Air 97.8 I&O Intake and Output 11/09/21 07:00 Intake Total 2395 ml Output Total 3100 ml Balance -705 ml Intake Oral 30 ml IV Total 950 ml Blood Product IV Normal Saline Flush 1415 ml Output Urine Total 2300 ml Stool Total 800 ml # Bowel Movements 1 General: Alert, Oriented X3, Cooperative Abdomen: Soft, Other (parastomal hernia, bowel functioning ) Labs Laboratory Tests Test 11/08/21 03:40 11/08/21 11:17 11/08/21 12:15 11/08/21 20:20 White Blood Count 11.0 x10^3/uL (4.0-11.0) Red Blood Count 2.17 x10^6/uL (4.30-5.70) Hemoglobin 6.9 g/dL (13.0-17.5) 5.6 g/dL (13.0-17.5) 8.2 g/dL (13.0-17.5) Hematocrit 20.5 % (39.0-53.0) Mean Corpuscular Volume 95 fL (79-100) Mean Corpuscular Hemoglobin 32 pg (25-35) Mean Corpuscular Hemoglobin Concent 33 g/dL (31-37) Red Cell Distribution Width 14.7 % (11.5-14.5) Platelet Count 415 x10^3/uL (140-400) Neutrophils (%) (Auto) 83 % (31-73) Lymphocytes (%) (Auto) 9 % (24-48) Monocytes (%) (Auto) 8 % (0-9) Eosinophils (%) (Auto) 0 % (0-3) Basophils (%) (Auto) 1 % (0-3) Neutrophils # (Auto) 9.1 x10^3/uL (1.8-7.7) Lymphocytes # (Auto) 1.0 x10^3/uL (1.0-4.8) Monocytes # (Auto) 0.9 x10^3/uL (0.0-1.1) Eosinophils # (Auto) 0.0 x10^3/uL (0.0-0.7) Basophils # (Auto) 0.1 x10^3/uL (0.0-0.2) Sodium Level 131 mmol/L (136-145) Potassium Level 4.1 mmol/L (3.5-5.1) Chloride Level 100 mmol/L (98-107) Carbon Dioxide Level 23 mmol/L (21-32) Anion Gap 8 (6-14) Blood Urea Nitrogen 64 mg/dL (8-26) Creatinine 1.7 mg/dL (0.7-1.3) Estimated GFR (Cockcroft-Gault) 40.9 BUN/Creatinine Ratio 38 (6-20) Glucose Level 86 mg/dL (70-99) Calcium Level 7.6 mg/dL (8.5-10.1) Total Bilirubin 0.1 mg/dL (0.2-1.0) Aspartate Amino Transf (AST/SGOT) 16 U/L (15-37) Alanine Aminotransferase (ALT/SGPT) 18 U/L (16-63) Alkaline Phosphatase 47 U/L (46-116) Total Protein 5.3 g/dL (6.4-8.2) Albumin 1.8 g/dL (3.4-5.0) Albumin/Globulin Ratio 0.5 (1.0-1.7) Stool Occult Blood Positive (NEG) Test 11/09/21 06:40 White Blood Count 9.7 x10^3/uL (4.0-11.0) Red Blood Count 2.18 x10^6/uL (4.30-5.70) Hemoglobin 6.8 g/dL (13.0-17.5) Hematocrit 20.3 % (39.0-53.0) Mean Corpuscular Volume 94 fL (79-100) Mean Corpuscular Hemoglobin 31 pg (25-35) Mean Corpuscular Hemoglobin Concent 34 g/dL (31-37) Red Cell Distribution Width 17.6 % (11.5-14.5) Platelet Count 284 x10^3/uL (140-400) Sodium Level 140 mmol/L (136-145) Potassium Level 4.3 mmol/L (3.5-5.1) Chloride Level 112 mmol/L (98-107) Carbon Dioxide Level 18 mmol/L (21-32) Anion Gap 10 (6-14) Blood Urea Nitrogen 66 mg/dL (8-26) Creatinine 1.4 mg/dL (0.7-1.3) Estimated GFR (Cockcroft-Gault) 51.2 BUN/Creatinine Ratio 47 (6-20) Glucose Level 82 mg/dL (70-99) Calcium Level 7.0 mg/dL (8.5-10.1) Total Bilirubin 0.3 mg/dL (0.2-1.0) Aspartate Amino Transf (AST/SGOT) 15 U/L (15-37) Alanine Aminotransferase (ALT/SGPT) 13 U/L (16-63) Alkaline Phosphatase 37 U/L (46-116) Total Protein 4.1 g/dL (6.4-8.2) Albumin 1.4 g/dL (3.4-5.0) Albumin/Globulin Ratio 0.5 (1.0-1.7) Laboratory Tests Test 11/08/21 11:17 11/08/21 12:15 11/08/21 20:20 11/09/21 06:40 Stool Occult Blood Positive (NEG) Hemoglobin 5.6 g/dL (13.0-17.5) 8.2 g/dL (13.0-17.5) 6.8 g/dL (13.0-17.5) White Blood Count 9.7 x10^3/uL (4.0-11.0) Red Blood Count 2.18 x10^6/uL (4.30-5.70) Hematocrit 20.3 % (39.0-53.0) Mean Corpuscular Volume 94 fL (79-100) Mean Corpuscular Hemoglobin 31 pg (25-35) Mean Corpuscular Hemoglobin Concent 34 g/dL (31-37) Red Cell Distribution Width 17.6 % (11.5-14.5) Platelet Count 284 x10^3/uL (140-400) Sodium Level 140 mmol/L (136-145) Potassium Level 4.3 mmol/L (3.5-5.1) Chloride Level 112 mmol/L (98-107) Carbon Dioxide Level 18 mmol/L (21-32) Anion Gap 10 (6-14) Blood Urea Nitrogen 66 mg/dL (8-26) Creatinine 1.4 mg/dL (0.7-1.3) Estimated GFR (Cockcroft-Gault) 51.2 BUN/Creatinine Ratio 47 (6-20) Glucose Level 82 mg/dL (70-99) Calcium Level 7.0 mg/dL (8.5-10.1) Total Bilirubin 0.3 mg/dL (0.2-1.0) Aspartate Amino Transf (AST/SGOT) 15 U/L (15-37) Alanine Aminotransferase (ALT/SGPT) 13 U/L (16-63) Alkaline Phosphatase 37 U/L (46-116) Total Protein 4.1 g/dL (6.4-8.2) Albumin 1.4 g/dL (3.4-5.0) Albumin/Globulin Ratio 0.5 (1.0-1.7) Assessment/Plan egd planned today no surgical plans for hernia chart, round 15 min Justicifation of Admission Dx: Justifications for Admission: Justification of Admission Dx: Yes Comments: anemia DARA ESTES MD 11/09/21 1324: SURGICAL PROGRESS NOTE Assessment/Plan Pt seen and examined. Agree with Ms. Rod's note Pt feels better abd soft, colostomy with stool without blood agree with EGD RAUL ROD APRN Nov 09, 2021 09:09 DARA ESTES MD Nov 09, 2021 13:24
--- NOTE | 2021-11-09 10:17 | PDOC ---
Renal-Progress Notes Subjective Notes Notes NO NEW COMPLAINTS History of Present Illness Hx of present illness NO ACUTE CHANGES Vitals Vitals Vital Signs Date Time Temp Pulse Resp B/P (MAP) Pulse Ox O2 Delivery O2 Flow Rate FiO2 11/09/21 07:00 97.8 91 18 83/52 (62) 96 Room Air 97.8 Weight Weight [ ] I.O. Intake and Output Intake and Output 11/09/21 07:00 Intake Total 2395 ml Output Total 3100 ml Balance -705 ml Intake Oral 30 ml IV Total 950 ml Blood Product IV Normal Saline Flush 1415 ml Output Urine Total 2300 ml Stool Total 800 ml # Bowel Movements 1 Labs Labs Laboratory Tests Test 11/08/21 11:17 11/08/21 12:15 11/08/21 20:20 11/09/21 06:40 Stool Occult Blood Positive (NEG) Hemoglobin 5.6 g/dL (13.0-17.5) 8.2 g/dL (13.0-17.5) 6.8 g/dL (13.0-17.5) White Blood Count 9.7 x10^3/uL (4.0-11.0) Red Blood Count 2.18 x10^6/uL (4.30-5.70) Hematocrit 20.3 % (39.0-53.0) Mean Corpuscular Volume 94 fL (79-100) Mean Corpuscular Hemoglobin 31 pg (25-35) Mean Corpuscular Hemoglobin Concent 34 g/dL (31-37) Red Cell Distribution Width 17.6 % (11.5-14.5) Platelet Count 284 x10^3/uL (140-400) Sodium Level 140 mmol/L (136-145) Potassium Level 4.3 mmol/L (3.5-5.1) Chloride Level 112 mmol/L (98-107) Carbon Dioxide Level 18 mmol/L (21-32) Anion Gap 10 (6-14) Blood Urea Nitrogen 66 mg/dL (8-26) Creatinine 1.4 mg/dL (0.7-1.3) Estimated GFR (Cockcroft-Gault) 51.2 BUN/Creatinine Ratio 47 (6-20) Glucose Level 82 mg/dL (70-99) Calcium Level 7.0 mg/dL (8.5-10.1) Total Bilirubin 0.3 mg/dL (0.2-1.0) Aspartate Amino Transf (AST/SGOT) 15 U/L (15-37) Alanine Aminotransferase (ALT/SGPT) 13 U/L (16-63) Alkaline Phosphatase 37 U/L (46-116) Total Protein 4.1 g/dL (6.4-8.2) Albumin 1.4 g/dL (3.4-5.0) Albumin/Globulin Ratio 0.5 (1.0-1.7) Review of Systems Constitutional: yes: weakness, alert, oriented Ears/Nose/Throat: Yes: no symptom reported Eyes: Yes: no symptom reported Pulmonary: Yes no symptom reported Cardiovascular: Yes no symptom reported Gastrointestional: Yes: other (OSTOMY NOTED) Musculoskeletal: Yes: no symptom reported Skin: Yes no symptom reported Psychiatric/Neurological: Yes: no symptom reported Physical Exam General Appearance: no apparent distress Skin: warm Respiratory: decreased breath sounds Heart: S1S2 Abdomen: soft, bowel sounds present Genitourinary: bladder flat Extremities: pulses present Neurology: alert Assessment Assessment IMP ERINN-CR OF 2.4 ON ADMIT IMPROVED TO 1.4 DEHYDRATION HYPOTENSION ABD PAIN HX OF RECTAL CANCER S/P RESECTION AND OSTOMY PARASTOMAL HERNIA HX OF HTN L SUBCLAVIAN ARTERY STENOSIS ANEMIA-HGB OF 6.8 PLAN HOLD HIS DONATO-I HYDRATION VASCULAR SURGERY EVAL CONSIDER GI EVAL MAY NEED PRBC EGD PENDING WILL FOLLOW LUIS PEREZ MD Nov 09, 2021 10:17
--- NOTE | 2021-11-09 11:18 | PN ---
DATE: 11/09/2021 SUBJECTIVE: The patient is resting, slightly propped up in bed, in no apparent respiratory distress. He is awake, alert, complaining that he is very thirsty and unfortunately apparently he dropped his H and H yesterday down to 5.6. He received 2 units of packed RBCs and his hemoglobin went up to 8.2. Unfortunately, this morning, he dropped again to 6.8 and he is in the process of receiving another unit of packed RBCs. He does have melena stool in his colostomy. His blood pressure continued to be soft, systolic pressure about 90 mm despite giving IV fluid. He received a liter of normal saline, continued at 150 mL per hour. His serum creatinine has actually improved from 2.4 down to 1.4 this morning. PHYSICAL EXAMINATION: GENERAL: When I saw him, he was pale, not jaundiced, cyanosed, no lymphadenopathy, no thyromegaly, no jugular venous distention. No limb edema. VITAL SIGNS: His heart rate was 91, blood pressure was 83/52, temperature was 97.8, respiratory rate was 18 and oxygen saturation was 96%. HEAD, EYES, EARS, NOSE, AND THROAT: Normocephalic, atraumatic. NECK: Supple. HEART: Showed normal first and second heart sounds. No gallop or murmur. CHEST: Clear to auscultation, no crepitation or rhonchi. ABDOMEN: Distended, soft with a colostomy bag in the left lower quadrant. There is no guarding or rigidity. No organomegaly. All hernial orifice intact. Bowel sounds normal. NEUROLOGIC: He was grossly intact. His intake over the last 24 hours was incompletely recorded. LABORATORY DATA: This morning showed a serum sodium 140, potassium 4.3, chloride 112, bicarbonate 18, anion gap of 10, BUN 66, creatinine 1.4. Estimated GFR was 51 mL per minute. His glucose was 82, calcium was 7. Total bilirubin, AST, ALT, alkaline phosphatase were normal. Total protein was 4.1, albumin was 1.4. His white cell count was 9700, hemoglobin 6.8, hematocrit 20, MCV was 94 and platelet count 284,000. ASSESSMENT: 1. Rectal carcinoma, status post resection and colostomy. 2. The patient presented with periumbilical abdominal pain and CT scan showed that the patient has a parastomal hernia without any obstruction, although continued to complain of abdominal pain. He was seen by the surgical team and did not favor any surgical intervention. 3. He complained of dizziness and a CT angio of the chest, abdomen and pelvis showed that he has left distal subclavian artery stenosis for which he was seen by the vascular surgeon who did not recommend any intervention. 4. He has right lower lobe pulmonary nodule that could be metastatic in nature. 5. He also developed acute blood loss anemia with a hemoglobin and hematocrit dropped down from 10-6.9 for which he received so far a total of 2 units of packed RBCs. 6. Acute kidney injury with a creatinine that has risen to 2.4. The patient was treated aggressively with IV fluid and his creatinine came down from 2.4 to 1.4. 7. The patient was seen by the Gastroenterology team and he is n.p.o. and is scheduled for upper GI endoscopy sometime this afternoon. PLAN: My plan is obviously to continue with IV fluid. Continue to monitor his H and H and transfuse him as needed. Continue with Protonix. Once he has EGD, we might start him on a clear liquid diet and advance as tolerated. ZACK DR: Suni TID: [id number]
[2021-11-09] MEDS ORDERED: LIDOCAINE 2% PF 5 ML VIAL. ONE (13:48)
[2021-11-09] MEDS ORDERED: PROPOFOL 10 MG/ML (20ML) VIAL. IV ONE (13:48)
--- NOTE | 2021-11-09 14:35 | PDOC4 ---
PROCEDURE Procedure EGD/biopsies Indication: Melena/hematemesis/acute anemia Meds: per anesthesia. Findings: E--Grade D esophagitis from 27-40 cm. G--Normal--biopsies from antrum and fundus re: H.pylori. D--15mm ulcer, apex of bulb with much surrounding edema. Some "red spots" but no visible vessel or clot. Second portion normal. Ulcer would be too large to effectively treat endoscopically if re-bleeds. Romaine. well. IMP: Severe esophagitis. Large DU, biopsies pending re: H.pylori. REC: OK for clears sparingly; would not advance as yet. PO PPI BID. If re-bleeds, would ask IR to embolize. No ASA, NSAIDs. AC's. If can go 48 hours w/o re-bleed, OK to start advancing diet. LEONIDES JOHN MD Nov 09, 2021 14:35
[2021-11-10] VITALS (8 sets, daily range): BP systolic 98–122; BP diastolic 54–75
[2021-11-10] MEDS: IV NORMAL SALINE 1000ML BAG 1,000 ML IV SCH ×4 (03:00→20:57)
[2021-11-10] MEDS: PANTOPRAZOLE SODIUM IV DRIP 80 MG in IV NORMAL SALINE 100ML 100 ML IV SCH ×2 (03:00→12:03)
[2021-11-10 06:51] LABS: ALBUMIN 1.4 g/dL (3.4-5.0); ALBUMIN/GLOBULIN RATIO 0.5 (1.0-1.7); CALCIUM 7.5 mg/dL (8.5-10.1); CREATININE 1.2 mg/dL (0.7-1.3); GFR 61.1; TOTAL BILIRUBIN 0.3 mg/dL (0.2-1.0); TOTAL PROTEIN 4.1 g/dL (6.4-8.2)
[2021-11-10 06:59] LABS: HEMATOCRIT 21.5 % (39.0-53.0); HEMOGLOBIN 7.1 g/dL (13.0-17.5); RED BLOOD COUNT 2.3 x10^6/uL (4.30-5.70); RED CELL DISTRIBUTION WIDTH 17.1 % (11.5-14.5); WHITE BLOOD COUNT 7.6 x10^3/uL (4.0-11.0)
--- NOTE | 2021-11-10 09:39 | PDOC ---
SURGICAL PROGRESS NOTE DATE: 11/10/21 TIME: 09:38 Subjective Pt denies complaint, strongly interested in d/c Vital Signs Vital Signs Date Time Temp Pulse Resp B/P (MAP) Pulse Ox O2 Delivery O2 Flow Rate FiO2 11/10/21 07:00 97.9 83 18 101/58 (72) 97 Room Air 97.9 11/09/21 14:34 4 I&O Intake and Output 11/10/21 07:00 Intake Total 1260 ml Output Total 3200 ml Balance -1940 ml Intake Oral 400 ml IV Total 500 ml Blood Product IV Normal Saline Flush 360 ml Output Urine Total 3200 ml General: Alert, Oriented X3, Cooperative, No acute distress Abdomen: Soft, No tenderness, Other (colostomy with brown stool, no obvious blood) Labs Laboratory Tests Test 11/08/21 11:17 11/08/21 12:15 11/08/21 20:20 11/09/21 06:40 Stool Occult Blood Positive (NEG) Hemoglobin 5.6 g/dL (13.0-17.5) 8.2 g/dL (13.0-17.5) 6.8 g/dL (13.0-17.5) White Blood Count 9.7 x10^3/uL (4.0-11.0) Red Blood Count 2.18 x10^6/uL (4.30-5.70) Hematocrit 20.3 % (39.0-53.0) Mean Corpuscular Volume 94 fL (79-100) Mean Corpuscular Hemoglobin 31 pg (25-35) Mean Corpuscular Hemoglobin Concent 34 g/dL (31-37) Red Cell Distribution Width 17.6 % (11.5-14.5) Platelet Count 284 x10^3/uL (140-400) Sodium Level 140 mmol/L (136-145) Potassium Level 4.3 mmol/L (3.5-5.1) Chloride Level 112 mmol/L (98-107) Carbon Dioxide Level 18 mmol/L (21-32) Anion Gap 10 (6-14) Blood Urea Nitrogen 66 mg/dL (8-26) Creatinine 1.4 mg/dL (0.7-1.3) Estimated GFR (Cockcroft-Gault) 51.2 BUN/Creatinine Ratio 47 (6-20) Glucose Level 82 mg/dL (70-99) Calcium Level 7.0 mg/dL (8.5-10.1) Total Bilirubin 0.3 mg/dL (0.2-1.0) Aspartate Amino Transf (AST/SGOT) 15 U/L (15-37) Alanine Aminotransferase (ALT/SGPT) 13 U/L (16-63) Alkaline Phosphatase 37 U/L (46-116) Total Protein 4.1 g/dL (6.4-8.2) Albumin 1.4 g/dL (3.4-5.0) Albumin/Globulin Ratio 0.5 (1.0-1.7) Test 11/09/21 18:00 11/10/21 04:45 Hemoglobin 8.8 g/dL (13.0-17.5) 7.1 g/dL (13.0-17.5) White Blood Count 7.6 x10^3/uL (4.0-11.0) Red Blood Count 2.30 x10^6/uL (4.30-5.70) Hematocrit 21.5 % (39.0-53.0) Mean Corpuscular Volume 94 fL (79-100) Mean Corpuscular Hemoglobin 31 pg (25-35) Mean Corpuscular Hemoglobin Concent 33 g/dL (31-37) Red Cell Distribution Width 17.1 % (11.5-14.5) Platelet Count 289 x10^3/uL (140-400) Sodium Level 138 mmol/L (136-145) Potassium Level 4.0 mmol/L (3.5-5.1) Chloride Level 109 mmol/L (98-107) Carbon Dioxide Level 19 mmol/L (21-32) Anion Gap 10 (6-14) Blood Urea Nitrogen 42 mg/dL (8-26) Creatinine 1.2 mg/dL (0.7-1.3) Estimated GFR (Cockcroft-Gault) 61.1 BUN/Creatinine Ratio 35 (6-20) Glucose Level 76 mg/dL (70-99) Calcium Level 7.5 mg/dL (8.5-10.1) Total Bilirubin 0.3 mg/dL (0.2-1.0) Aspartate Amino Transf (AST/SGOT) 9 U/L (15-37) Alanine Aminotransferase (ALT/SGPT) 14 U/L (16-63) Alkaline Phosphatase 34 U/L (46-116) Total Protein 4.1 g/dL (6.4-8.2) Albumin 1.4 g/dL (3.4-5.0) Albumin/Globulin Ratio 0.5 (1.0-1.7) Laboratory Tests Test 11/09/21 18:00 11/10/21 04:45 Hemoglobin 8.8 g/dL (13.0-17.5) 7.1 g/dL (13.0-17.5) White Blood Count 7.6 x10^3/uL (4.0-11.0) Red Blood Count 2.30 x10^6/uL (4.30-5.70) Hematocrit 21.5 % (39.0-53.0) Mean Corpuscular Volume 94 fL (79-100) Mean Corpuscular Hemoglobin 31 pg (25-35) Mean Corpuscular Hemoglobin Concent 33 g/dL (31-37) Red Cell Distribution Width 17.1 % (11.5-14.5) Platelet Count 289 x10^3/uL (140-400) Sodium Level 138 mmol/L (136-145) Potassium Level 4.0 mmol/L (3.5-5.1) Chloride Level 109 mmol/L (98-107) Carbon Dioxide Level 19 mmol/L (21-32) Anion Gap 10 (6-14) Blood Urea Nitrogen 42 mg/dL (8-26) Creatinine 1.2 mg/dL (0.7-1.3) Estimated GFR (Cockcroft-Gault) 61.1 BUN/Creatinine Ratio 35 (6-20) Glucose Level 76 mg/dL (70-99) Calcium Level 7.5 mg/dL (8.5-10.1) Total Bilirubin 0.3 mg/dL (0.2-1.0) Aspartate Amino Transf (AST/SGOT) 9 U/L (15-37) Alanine Aminotransferase (ALT/SGPT) 14 U/L (16-63) Alkaline Phosphatase 34 U/L (46-116) Total Protein 4.1 g/dL (6.4-8.2) Albumin 1.4 g/dL (3.4-5.0) Albumin/Globulin Ratio 0.5 (1.0-1.7) Assessment/Plan GI bleeding from duodenal ulcer per GI no surgical plans. Justicifation of Admission Dx: Justifications for Admission: Justification of Admission Dx: Yes DARA ESTES MD Nov 10, 2021 09:39
--- NOTE | 2021-11-10 10:32 | NUR ---
SW following. Discussed with RN, pt from home with , room air, clear liquid diet. Pt not medically ready for discharge. SW will continue to follow.
--- NOTE | 2021-11-10 11:03 | PDOC ---
Renal-Progress Notes Subjective Notes Notes FEELS WELL, WANTS TO GO HOME History of Present Illness Hx of present illness NO ACUTE CHANGES Vitals Vitals Vital Signs Date Time Temp Pulse Resp B/P (MAP) Pulse Ox O2 Delivery O2 Flow Rate FiO2 11/10/21 07:00 97.9 83 18 101/58 (72) 97 Room Air 97.9 11/09/21 14:34 4 Weight Weight [ ] I.O. Intake and Output Intake and Output 11/10/21 07:00 Intake Total 1260 ml Output Total 3200 ml Balance -1940 ml Intake Oral 400 ml IV Total 500 ml Blood Product IV Normal Saline Flush 360 ml Output Urine Total 3200 ml Labs Labs Laboratory Tests Test 11/09/21 18:00 11/10/21 04:45 Hemoglobin 8.8 g/dL (13.0-17.5) 7.1 g/dL (13.0-17.5) White Blood Count 7.6 x10^3/uL (4.0-11.0) Red Blood Count 2.30 x10^6/uL (4.30-5.70) Hematocrit 21.5 % (39.0-53.0) Mean Corpuscular Volume 94 fL (79-100) Mean Corpuscular Hemoglobin 31 pg (25-35) Mean Corpuscular Hemoglobin Concent 33 g/dL (31-37) Red Cell Distribution Width 17.1 % (11.5-14.5) Platelet Count 289 x10^3/uL (140-400) Sodium Level 138 mmol/L (136-145) Potassium Level 4.0 mmol/L (3.5-5.1) Chloride Level 109 mmol/L (98-107) Carbon Dioxide Level 19 mmol/L (21-32) Anion Gap 10 (6-14) Blood Urea Nitrogen 42 mg/dL (8-26) Creatinine 1.2 mg/dL (0.7-1.3) Estimated GFR (Cockcroft-Gault) 61.1 BUN/Creatinine Ratio 35 (6-20) Glucose Level 76 mg/dL (70-99) Calcium Level 7.5 mg/dL (8.5-10.1) Total Bilirubin 0.3 mg/dL (0.2-1.0) Aspartate Amino Transf (AST/SGOT) 9 U/L (15-37) Alanine Aminotransferase (ALT/SGPT) 14 U/L (16-63) Alkaline Phosphatase 34 U/L (46-116) Total Protein 4.1 g/dL (6.4-8.2) Albumin 1.4 g/dL (3.4-5.0) Albumin/Globulin Ratio 0.5 (1.0-1.7) Review of Systems Constitutional: yes: weakness, alert, oriented Ears/Nose/Throat: Yes: no symptom reported Eyes: Yes: no symptom reported Pulmonary: Yes no symptom reported Cardiovascular: Yes no symptom reported Gastrointestional: Yes: other (OSTOMY NOTED) Musculoskeletal: Yes: no symptom reported Skin: Yes no symptom reported Psychiatric/Neurological: Yes: no symptom reported Physical Exam General Appearance: no apparent distress Skin: warm Respiratory: decreased breath sounds Heart: S1S2 Abdomen: soft, bowel sounds present Genitourinary: bladder flat Extremities: pulses present Neurology: alert Assessment Assessment IMP ERINN-RESOLVED DEHYDRATION-CORRECTED HYPOTENSION-BETTER ABD PAIN HX OF RECTAL CANCER S/P RESECTION AND OSTOMY PARASTOMAL HERNIA HX OF HTN L SUBCLAVIAN ARTERY STENOSIS ANEMIA-STABLE PLAN RENAL FXN STABLE WILL SIGN OFF LUIS PEREZ MD Nov 10, 2021 11:03
--- NOTE | 2021-11-10 11:08 | PN ---
DATE: 11/10/2021 SUBJECTIVE: The patient is sitting slightly propped up in bed, in no apparent distress. He is stating that he is hungry and would like to eat. He was on a clear liquid diet, but he would like to have some more substantial. We will advance him to full liquid diet and if the GI states that he can eat, we will advance him to at least a mechanical soft diet. PHYSICAL EXAMINATION: GENERAL: When I saw him today, he looked pale, but not jaundiced or cyanosed. No thyromegaly. No jugular venous distention. No limb edema. VITAL SIGNS: His heart rate was 83, blood pressure was 101/58, temperature 97.9, respiratory rate was 18, and oxygen saturation was 97% on room air. HEAD, EYES, EARS, NOSE, AND THROAT: Normocephalic, atraumatic. NECK: Supple. HEART: Showed normal first and second heart sounds. No gallop or murmur. CHEST: Clear to auscultation, no crepitation or rhonchi. ABDOMEN: Distended, soft with a colostomy bag in the left lower quadrant. There is no guarding or rigidity. No organomegaly. All hernial orifice intact. Bowel sounds normal. NEUROLOGIC: He was grossly intact. His intake over the last 24 hours was 2400, output was 3100. LABORATORY DATA: As of this morning, his serum sodium was 138, potassium 4, chloride 109, bicarbonate 9, anion gap of 10, BUN 42, creatinine 1.2, estimated GFR was 61 mL per minute, his glucose was 76, calcium was 7.5. Total bilirubin, AST, ALT, alkaline phosphatase were normal. Total protein 4.1, albumin was 1.4. His white cell count was 7600, hemoglobin 7.1, hematocrit 21.5, MCV 94, and platelet count 289,000. ASSESSMENT: 1. Rectal carcinoma, status post resection and colostomy. 2. 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 He was seen by the surgical team who did not favor any surgical intervention. 3. Did complain of dizziness and a CT scan of the chest, abdomen and pelvis showed the patient has left distal subclavian artery stenosis for which he was seen by the vascular surgeon who did not recommend any intervention. 4. He has right lower lobe pulmonary nodules that could be metastatic in nature. 5. He also developed acute blood loss anemia with hemoglobin and hematocrit dropped down from 10 to 6.9 for which he received at least 2 units of packed RBCs. He has an upper GI endoscopy, which showed that he has severe esophagitis as well as a large duodenal ulcer with no evidence of active bleeding. The ulcer was 15 mm at the apex of the polyp with much surrounding edema, some red spots, but no visible vessel or clot and according to the turbine attendant, he is okay with clears. Sparingly, we would not advance as yet. He is on p.o. proton pump inhibitor. If rebleeds, we would ask Interventional Radiology to embolize, no aspirin or nonsteroidals. If he goes 48 hours without rebleed, okay to start advancing diet. 6. The patient also developed acute kidney injury. His creatinine has risen up to 2.4. He was treated aggressively with IV fluid and his creatinine came down from 2.4 to 1.2. PLAN: Obvious to continue with IV fluid. Continue with clear liquid diet and continue with proton pump inhibitor. I will repeat his H and H every 6 hours and if hemoglobin is 7 or less than 7, we will transfuse him and if he rebleeds again, we will obviously consult the interventional radiologist to embolize the bleeding artery. NELY/SERGIO MAIN: Suni TID: [id number]
--- NOTE | 2021-11-10 12:36 | PDOC ---
Date of Service: DATE: 11/10/21 TIME: 12:31 Subjective: Subjective: Wants to go home tomorrow, says he can do all this at home. Objective: Objective: D/w nursing - pt wants to eat and leave. D/w Dr. Bernabe - now more agreeable to keeping to clears. Vital Signs: Vital Signs Date Time Temp Pulse Resp B/P (MAP) Pulse Ox O2 Delivery O2 Flow Rate FiO2 11/10/21 08:00 Room Air 11/10/21 07:00 97.9 83 18 101/58 (72) 97 97.9 11/09/21 14:34 4 Labs: Laboratory Tests Test 11/09/21 18:00 11/10/21 04:45 Hemoglobin 8.8 g/dL 7.1 g/dL White Blood Count 7.6 x10^3/uL Red Blood Count 2.30 x10^6/uL Hematocrit 21.5 % Mean Corpuscular Volume 94 fL Mean Corpuscular Hemoglobin 31 pg Mean Corpuscular Hemoglobin Concent 33 g/dL Red Cell Distribution Width 17.1 % Platelet Count 289 x10^3/uL Sodium Level 138 mmol/L Potassium Level 4.0 mmol/L Chloride Level 109 mmol/L Carbon Dioxide Level 19 mmol/L Anion Gap 10 Blood Urea Nitrogen 42 mg/dL Creatinine 1.2 mg/dL Estimated GFR (Cockcroft-Gault) 61.1 BUN/Creatinine Ratio 35 Glucose Level 76 mg/dL Calcium Level 7.5 mg/dL Total Bilirubin 0.3 mg/dL Aspartate Amino Transf (AST/SGOT) 9 U/L Alanine Aminotransferase (ALT/SGPT) 14 U/L Alkaline Phosphatase 34 U/L Total Protein 4.1 g/dL Albumin 1.4 g/dL Albumin/Globulin Ratio 0.5 Imaging: Findings: E--Grade D esophagitis from 27-40 cm. G--Normal--biopsies from antrum and fundus re: H.pylori. D--15mm ulcer, apex of bulb with much surrounding edema. Some "red spots" but no visible vessel or clot. Second portion normal. Ulcer would be too large to effectively treat endoscopically if re-bleeds. Romaine. well. IMP: Severe esophagitis. Large DU, biopsies pending re: H.pylori. REC: OK for clears sparingly; would not advance as yet. PO PPI BID. If re-bleeds, would ask IR to embolize. No ASA, NSAIDs. AC's. If can go 48 hours w/o re-bleed, OK to start advancing diet. Leave on PPI gtt for now. Go to PO BID tomorrow. PE: GEN: NAD LUNGS: diminished HEART: RRR ABD: soft, LLQ ostomy w/ dark liquid stool NEURO/PSYCH: A & O 3 A/P: Severe esophagitis, large DU (biopsy pending) Anemia - s/p transfusions, Hgb 7.1 this morning Melena - resolving? H/o rectal cancer w/ ostomy -- Explained EGD findings and rational behind clear liquid diet and close monitoring before discharge - unclear he fully comprehends but seems agreeable for now. Continue PPI, monitor ostomy output and Hgb. Justicifation of Admission Dx: Justifications for Admission: Justification of Admission Dx: Yes SOHAM CHRISTIANSON Nov 10, 2021 12:36
[2021-11-10] MEDS: PANTOPRAZOLE 40 MG TABLET.DR. PO SCH (16:36)
[2021-11-11] VITALS (13 sets, daily range): BP systolic 89–107; BP diastolic 51–64
[2021-11-11] MEDS: IV NORMAL SALINE 1000ML BAG 1,000 ML IV SCH ×3 (04:44→21:13)
[2021-11-11] MEDS: PANTOPRAZOLE 40 MG TABLET.DR. PO SCH (07:44)
--- NOTE | 2021-11-11 08:40 | PDOC ---
SURGICAL PROGRESS NOTE DATE: 11/11/21 TIME: 08:39 Subjective wants to go home today denies pain Vital Signs Vital Signs Date Time Temp Pulse Resp B/P (MAP) Pulse Ox O2 Delivery O2 Flow Rate FiO2 11/11/21 07:46 Room Air 11/11/21 07:00 98.2 64 18 98/61 (73) 93 98.2 I&O Intake and Output 11/11/21 07:00 Intake Total 450 ml Output Total 1350 ml Balance -900 ml Intake Oral 400 ml Blood Product IV Normal Saline Flush 50 ml Output Urine Total 1250 ml Stool Total 100 ml General: Alert, Cooperative Abdomen: Soft, Other (ostomy has stool) Labs Laboratory Tests Test 11/09/21 18:00 11/10/21 04:45 11/10/21 11:43 11/10/21 19:12 Hemoglobin 8.8 g/dL (13.0-17.5) 7.1 g/dL (13.0-17.5) 7.3 g/dL (13.0-17.5) 7.0 g/dL (13.0-17.5) White Blood Count 7.6 x10^3/uL (4.0-11.0) Red Blood Count 2.30 x10^6/uL (4.30-5.70) Hematocrit 21.5 % (39.0-53.0) Mean Corpuscular Volume 94 fL (79-100) Mean Corpuscular Hemoglobin 31 pg (25-35) Mean Corpuscular Hemoglobin Concent 33 g/dL (31-37) Red Cell Distribution Width 17.1 % (11.5-14.5) Platelet Count 289 x10^3/uL (140-400) Sodium Level 138 mmol/L (136-145) Potassium Level 4.0 mmol/L (3.5-5.1) Chloride Level 109 mmol/L (98-107) Carbon Dioxide Level 19 mmol/L (21-32) Anion Gap 10 (6-14) Blood Urea Nitrogen 42 mg/dL (8-26) Creatinine 1.2 mg/dL (0.7-1.3) Estimated GFR (Cockcroft-Gault) 61.1 BUN/Creatinine Ratio 35 (6-20) Glucose Level 76 mg/dL (70-99) Calcium Level 7.5 mg/dL (8.5-10.1) Total Bilirubin 0.3 mg/dL (0.2-1.0) Aspartate Amino Transf (AST/SGOT) 9 U/L (15-37) Alanine Aminotransferase (ALT/SGPT) 14 U/L (16-63) Alkaline Phosphatase 34 U/L (46-116) Total Protein 4.1 g/dL (6.4-8.2) Albumin 1.4 g/dL (3.4-5.0) Albumin/Globulin Ratio 0.5 (1.0-1.7) Laboratory Tests Test 11/10/21 11:43 11/10/21 19:12 Hemoglobin 7.3 g/dL (13.0-17.5) 7.0 g/dL (13.0-17.5) Assessment/Plan hgb 7 may need IR consult for possible embolization, defer to GI Justicifation of Admission Dx: Justifications for Admission: Justification of Admission Dx: Yes RAUL ROD APRN Nov 11, 2021 08:40
[2021-11-11 08:55] LABS: HEMATOCRIT 20.1 % (39.0-53.0); RED BLOOD COUNT 2.14 x10^6/uL (4.30-5.70); WHITE BLOOD COUNT 8.7 x10^3/uL (4.0-11.0)
[2021-11-11 08:59] LABS: HEMOGLOBIN 6.8 g/dL (13.0-17.5)
[2021-11-11 09:44] LABS: ALBUMIN 1.4 g/dL (3.4-5.0); ALBUMIN/GLOBULIN RATIO 0.5 (1.0-1.7); CALCIUM 7.2 mg/dL (8.5-10.1); CREATININE 1.1 mg/dL (0.7-1.3); GFR 67.6; TOTAL BILIRUBIN 0.3 mg/dL (0.2-1.0); TOTAL PROTEIN 4.2 g/dL (6.4-8.2)
--- NOTE | 2021-11-11 11:14 | PN ---
DATE: 11/11/2021 SUBJECTIVE: The patient is resting, slightly propped up in bed, in no apparent distress. He is angry. He would like to eat and would like to go home. Unfortunately, his hemoglobin dropped to 7 yesterday, he received 1 unit and this morning, his hemoglobin again down to 6.8 indicating that he is actively bleeding. I explained the situation to him. PHYSICAL EXAMINATION: GENERAL: When I examined him, he was pale, not jaundiced, cyanosed. No thyromegaly. No jugular venous distention. No limb edema. VITAL SIGNS: Her heart rate was 64, blood pressure was 98/61, temperature 98.2, respiratory rate was 18 and oxygen saturation was 93% on room air. HEAD, EYES, EARS, NOSE, AND THROAT: Normocephalic, atraumatic. NECK: Supple. HEART: Showed normal first and second heart sounds. No gallop or murmur. CHEST: Clear to auscultation. No crepitation or rhonchi. ABDOMEN: Distended, soft, nontender. NEUROLOGIC: He was grossly intact. His intake was 1260, output 3200. LABORATORY DATA: As of this morning, his white cell count was 8700, his hemoglobin was 6.8, hematocrit 20.1, MCV 94, and platelet count 284,000. His chemistry still pending at the time of this dictation. ASSESSMENT: 1. Acute blood loss anemia with hemoglobin and hematocrit dropped down from 10-6.9, for which he received at least 3 units of packed RBCs. He has an upper GI endoscopy, which showed that he has severe esophagitis as well as a large 15 mm duodenal ulcer with no evidence of active bleeding. According to the sr. operations manager, he is okay with clears sparingly; however, he did not recommend advancing his diet. He is on p.o. proton pump inhibitor and apparently he is rebleeding, so he needs Interventional Radiology to coil embolize the bleeding artery. We will avoid obviously all nonsteroidals and aspirin. 2. Acute on chronic kidney injury, resolving. His creatinine came down from 2.4-1.2. 3. Rectal carcinoma, status post resection and colostomy. 4. The patient presented with periumbilical abdominal pain. A CT scan showed that the patient has parastomal hernia without any obstruction; however, the patient continued to complain of abdominal pain. He was seen by the surgical team who did not recommend any surgical intervention. 5. Did complain of dizziness and CT scan of the chest, abdomen and pelvis showed the patient has left distal subclavian artery stenosis, for which he was seen by the vascular surgeon. We did not recommend any intervention. 6. The patient has right lower lobe pulmonary nodule that could be metastatic in nature. PLAN: Obviously to type and cross and transfuse him 1 unit of blood. We will discuss with the sr. operations manager. Continue with proton pump inhibitor. Continue with clear liquid diet and decide on further management accordingly. DESTINEY DR: Suni TID: [id number]
--- NOTE | 2021-11-11 14:56 | PDOC ---
Date of Service: DATE: 11/11/21 TIME: 14:50 Subjective: Subjective: HGB to 6.8 overnight with black liquid in ostomy bag. Receiving PRBCs EGD 11/10/2021 with E--Grade D esophagitis from 27-40 cm. G--Normal--biopsies from antrum and fundus re: H.pylori. D--15mm ulcer, apex of bulb with much surrounding edema. Some "red spots" but no visible vessel or clot. Second portion normal. Ulcer would be too large to effectively treat endoscopically if re-bleeds. Romaine. well. IMP: Severe esophagitis. Large DU, biopsies pending re: H.pylori. REC: OK for clears sparingly; would not advance as yet. PO PPI BID. If re-bleeds, would ask IR to embolize. No ASA, NSAIDs. AC's. If can go 48 hours w/o re-bleed, OK to start advancing diet. Leave on PPI gtt for now. Go to PO BID tomorrow. Objective: Vital Signs: Vital Signs Date Time Temp Pulse Resp B/P (MAP) Pulse Ox O2 Delivery O2 Flow Rate FiO2 11/11/21 14:15 98.0 116 20 89/60 98.0 11/11/21 11:00 98 Room Air Labs: Laboratory Tests Test 11/10/21 19:12 11/11/21 07:51 Hemoglobin 7.0 g/dL (13.0-17.5) 6.8 g/dL (13.0-17.5) White Blood Count 8.7 x10^3/uL (4.0-11.0) Red Blood Count 2.14 x10^6/uL (4.30-5.70) Hematocrit 20.1 % (39.0-53.0) Mean Corpuscular Volume 94 fL (79-100) Mean Corpuscular Hemoglobin 32 pg (25-35) Mean Corpuscular Hemoglobin Concent 34 g/dL (31-37) Red Cell Distribution Width 16.0 % (11.5-14.5) Platelet Count 284 x10^3/uL (140-400) Sodium Level 139 mmol/L (136-145) Potassium Level 4.0 mmol/L (3.5-5.1) Chloride Level 110 mmol/L (98-107) Carbon Dioxide Level 17 mmol/L (21-32) Anion Gap 12 (6-14) Blood Urea Nitrogen 38 mg/dL (8-26) Creatinine 1.1 mg/dL (0.7-1.3) Estimated GFR (Cockcroft-Gault) 67.6 BUN/Creatinine Ratio 35 (6-20) Glucose Level 99 mg/dL (70-99) Calcium Level 7.2 mg/dL (8.5-10.1) Total Bilirubin 0.3 mg/dL (0.2-1.0) Aspartate Amino Transf (AST/SGOT) 11 U/L (15-37) Alanine Aminotransferase (ALT/SGPT) 11 U/L (16-63) Alkaline Phosphatase 36 U/L (46-116) Total Protein 4.2 g/dL (6.4-8.2) Albumin 1.4 g/dL (3.4-5.0) Albumin/Globulin Ratio 0.5 (1.0-1.7) Physical Exam: Physical Exam: GEN: NAD LUNGS: diminished HEART: RRR ABD: soft, LLQ ostomy w/ dark liquid stool NEURO/PSYCH: A & O 3 Assessment & Plan: Assessment : A/P: Severe esophagitis, large DU (biopsy pending) Anemia - s/p transfusions, Hgb 6.8 this am receveing PRBCs. Have place IR consult for ? embolization. Melena H/o rectal cancer w/ ostomy Plan: IR consult- I placed it now PPI gtts On clears. Favor NPO once IR consult available Justicifation of Admission Dx: Justifications for Admission: Justification of Admission Dx: Yes JO-ANN MATUTE MD Nov 11, 2021 14:56
[2021-11-11] MEDS: PANTOPRAZOLE SODIUM IV DRIP 80 MG in IV NORMAL SALINE 100ML 100 ML IV SCH (15:39)
[2021-11-12] VITALS (15 sets, daily range): BP systolic 93–118; BP diastolic 52–73
[2021-11-12] MEDS: IV NORMAL SALINE 1000ML BAG 1,000 ML IV SCH ×4 (00:44→22:48)
[2021-11-12] MEDS: PANTOPRAZOLE SODIUM IV DRIP 80 MG in IV NORMAL SALINE 100ML 100 ML IV SCH ×2 (02:53→14:31)
[2021-11-12 05:45] LABS: CREATININE 1.2 mg/dL (0.7-1.3); GFR 61.1; POTASSIUM 3.6 mmol/L (3.5-5.1)
--- NOTE | 2021-11-12 08:33 | PDOC ---
SURGICAL PROGRESS NOTE DATE: 11/12/21 TIME: 08:32 Subjective wonders about procedure today for bleeding denies pain Vital Signs Vital Signs Date Time Temp Pulse Resp B/P (MAP) Pulse Ox O2 Delivery O2 Flow Rate FiO2 11/12/21 03:00 98.5 81 16 100/60 98.5 11/11/21 23:33 98 Room Air 11/11/21 20:00 4.0 I&O Intake and Output 11/12/21 07:00 Intake Total 1750 ml Output Total 4150 ml Balance -2400 ml Intake Oral 1050 ml Blood Product IV Normal Saline Flush 700 ml Output Urine Total 3750 ml Stool Total 400 ml General: Alert, Cooperative Abdomen: Soft Labs Laboratory Tests Test 11/10/21 11:43 11/10/21 19:12 11/11/21 07:51 11/11/21 22:00 Hemoglobin 7.3 g/dL (13.0-17.5) 7.0 g/dL (13.0-17.5) 6.8 g/dL (13.0-17.5) 6.2 g/dL (13.0-17.5) White Blood Count 8.7 x10^3/uL (4.0-11.0) Red Blood Count 2.14 x10^6/uL (4.30-5.70) Hematocrit 20.1 % (39.0-53.0) Mean Corpuscular Volume 94 fL (79-100) Mean Corpuscular Hemoglobin 32 pg (25-35) Mean Corpuscular Hemoglobin Concent 34 g/dL (31-37) Red Cell Distribution Width 16.0 % (11.5-14.5) Platelet Count 284 x10^3/uL (140-400) Sodium Level 139 mmol/L (136-145) Potassium Level 4.0 mmol/L (3.5-5.1) Chloride Level 110 mmol/L (98-107) Carbon Dioxide Level 17 mmol/L (21-32) Anion Gap 12 (6-14) Blood Urea Nitrogen 38 mg/dL (8-26) Creatinine 1.1 mg/dL (0.7-1.3) Estimated GFR (Cockcroft-Gault) 67.6 BUN/Creatinine Ratio 35 (6-20) Glucose Level 99 mg/dL (70-99) Calcium Level 7.2 mg/dL (8.5-10.1) Total Bilirubin 0.3 mg/dL (0.2-1.0) Aspartate Amino Transf (AST/SGOT) 11 U/L (15-37) Alanine Aminotransferase (ALT/SGPT) 11 U/L (16-63) Alkaline Phosphatase 36 U/L (46-116) Total Protein 4.2 g/dL (6.4-8.2) Albumin 1.4 g/dL (3.4-5.0) Albumin/Globulin Ratio 0.5 (1.0-1.7) Test 11/12/21 03:30 Hemoglobin 7.1 g/dL (13.0-17.5) Sodium Level 137 mmol/L (136-145) Potassium Level 3.6 mmol/L (3.5-5.1) Chloride Level 110 mmol/L (98-107) Carbon Dioxide Level 16 mmol/L (21-32) Anion Gap 11 (6-14) Blood Urea Nitrogen 40 mg/dL (8-26) Creatinine 1.2 mg/dL (0.7-1.3) Estimated GFR (Cockcroft-Gault) 61.1 Glucose Level 82 mg/dL (70-99) Calcium Level 7.0 mg/dL (8.5-10.1) Laboratory Tests Test 11/11/21 22:00 11/12/21 03:30 Hemoglobin 6.2 g/dL (13.0-17.5) 7.1 g/dL (13.0-17.5) Sodium Level 137 mmol/L (136-145) Potassium Level 3.6 mmol/L (3.5-5.1) Chloride Level 110 mmol/L (98-107) Carbon Dioxide Level 16 mmol/L (21-32) Anion Gap 11 (6-14) Blood Urea Nitrogen 40 mg/dL (8-26) Creatinine 1.2 mg/dL (0.7-1.3) Estimated GFR (Cockcroft-Gault) 61.1 Glucose Level 82 mg/dL (70-99) Calcium Level 7.0 mg/dL (8.5-10.1) Problem List IR consult pending will follow Justicifation of Admission Dx: Justifications for Admission: Justification of Admission Dx: Yes RAUL ROD BROILER SUPERVISOR Nov 12, 2021 08:33
--- NOTE | 2021-11-12 11:15 | PDOC ---
Date of Service: DATE: 11/12/21 TIME: 11:13 Subjective: Subjective: Still with dark stool in bag. Hgb 7.1. Awaiting IR today Objective: Vital Signs: Vital Signs Date Time Temp Pulse Resp B/P (MAP) Pulse Ox O2 Delivery O2 Flow Rate FiO2 11/12/21 08:00 Room Air 4.0 11/12/21 07:00 97.8 84 20 103/59 (74) 100 97.8 Labs: Laboratory Tests Test 11/11/21 22:00 11/12/21 03:30 11/12/21 10:55 Hemoglobin 6.2 g/dL (13.0-17.5) 7.1 g/dL (13.0-17.5) 7.3 g/dL (13.0-17.5) Sodium Level 137 mmol/L (136-145) Potassium Level 3.6 mmol/L (3.5-5.1) Chloride Level 110 mmol/L (98-107) Carbon Dioxide Level 16 mmol/L (21-32) Anion Gap 11 (6-14) Blood Urea Nitrogen 40 mg/dL (8-26) Creatinine 1.2 mg/dL (0.7-1.3) Estimated GFR (Cockcroft-Gault) 61.1 Glucose Level 82 mg/dL (70-99) Calcium Level 7.0 mg/dL (8.5-10.1) Physical Exam: Physical Exam: Physical Exam: Physical Exam: GEN: NAD LUNGS: diminished HEART: RRR ABD: soft, LLQ ostomy w/ dark liquid stool NEURO/PSYCH: A & O 3 Assessment & Plan: Assessment : A/ Severe esophagitis, large DU (biopsy pending) Anemia - s/p transfusions, Hgb 7.1 this am after PRBCs. Have place IR consult for ? embolization. Melena H/o rectal cancer w/ ostomy Plan: Awating IR today PPI gtts Okay to start clear from GI standpoint after cleared by IR Justicifation of Admission Dx: Justifications for Admission: Justification of Admission Dx: Yes JO-ANN MATUTE MD Nov 12, 2021 11:15
[2021-11-12 11:29] LABS: PROTHROMBIN TIME PATIENT 14.1 SEC (11.7-14.0)
[2021-11-12] MEDS ORDERED: IODIXANOL 320 MG/ML 100 ML VIAL. ONE ×2 (11:40→11:47)
[2021-11-12] MEDS ORDERED: LIDOCAINE WITH 8.4% SOD BICARB 3 ML DISP.SYRIN. ONE (11:40)
[2021-11-12] MEDS ORDERED: IODIXANOL 320 MG/ML 50ML VIAL. ONE (11:40)
[2021-11-12] MEDS ORDERED: MIDAZOLAM HCL/PF 2 MG/2 ML VIAL. ONE (11:42)
[2021-11-12] MEDS ORDERED: fentaNYL PF VIAL 100 MCG/2 ML VIAL ONE (11:42)
--- NOTE | 2021-11-12 11:54 | PN ---
DATE: 11/12/2021 SUBJECTIVE: The patient is resting, slightly propped up in bed, in no apparent distress. He denied any complaint, in particular, denied any nausea or vomiting. Denied any hematemesis. He has a dark stool in his colostomy. He continued to bleed and has had received multiple units of packed RBCs. He is n.p.o. from midnight last night. He did receive 1 unit of packed RBCs last night and his hemoglobin this morning was 7.1. His chemistry, however, showed a BUN and creatinine of 40 and 1.2. PHYSICAL EXAMINATION: GENERAL: When I examined him this afternoon, he looked well and was clearly in no apparent respiratory distress. He was pale, but not jaundiced or cyanosed, no thyromegaly, no jugular venous distention. No limb edema. VITAL SIGNS: His heart rate was 84, blood pressure was 103/59, temperature 97.8, respiratory rate 20, and oxygen saturation was 100% on room air. HEAD, EYES, EARS, NOSE, AND THROAT: Normocephalic, atraumatic. NECK: Supple. HEART: Showed normal first and second heart sounds. No gallop, rub or murmur. CHEST: Clear to auscultation, no crepitation or rhonchi. ABDOMEN: He has a colostomy bag in the left lower quadrant. There is no guarding or rigidity. No organomegaly. All hernial orifice intact. Bowel sounds normal. NEUROLOGIC: He was grossly intact. His intake over the last 24 hours was 450, output was 1350. LABORATORY DATA: This morning showed his hemoglobin to be 7.1. His chemistry showed a serum sodium 137, potassium 3.6, chloride 110, bicarbonate 16, anion gap of 11, BUN 40, creatinine 1.2, estimated GFR was 61 mL per minute, his glucose was 82 and calcium was 7. ASSESSMENT: 1. Acute blood loss anemia with hemoglobin and hematocrit dropping from 10 to 6.9, for which he received at least 4 units of packed RBCs. He has an upper GI endoscopy, which showed that he has severe esophagitis as well as large 15 mm duodenal ulcer with no evidence of active bleeding. According to the retail stock clerk, he is okay with clears sparingly, however, he did not recommend advancing his diet. He is on IV proton pump inhibitor. As he continued to bleed, I contacted the interventional radiologist with a plan for him to coil embolize his gastroduodenal artery. 2. Acute on chronic kidney injury, resolving. His creatinine came down from 2.4 to 1.2. 3. Rectal carcinoma, status post resection and colostomy. 4. The patient presented with periumbilical abdominal pain. A CT scan showed that the patient has parastomal hernia without any obstruction; however, the patient continued to complain of abdominal pain. He was seen by the surgical team who did not recommend any surgical intervention. 5. The patient did complain of dizziness and a CT scan of the chest, abdomen and pelvis showed the patient has left distal subclavian artery stenosis for which he was seen by the vascular surgeon who did not recommend any intervention for the time being. 6. The patient has right lower lobe pulmonary nodule that could be metastatic in nature. PLAN: To check his stat PT, INR, APTT and hemoglobin as the interventional radiologist is planning to do the angiogram and coil embolization today. If after the procedure, GI and interventional radiologist agree, we can advance his diet. RYAN DR: Suni TID: [id number]
[2021-11-12] MEDS ORDERED: LIDOCAINE WITH 8.4% SOD BICARB 3 ML DISP.SYRIN. IJ ONE (12:00)
[2021-11-12] MEDS ORDERED: MIDAZOLAM HCL/PF 2 MG/2 ML VIAL. IV ONE (12:00)
[2021-11-12] MEDS ORDERED: fentaNYL PF VIAL 100 MCG/2 ML VIAL IV ONE (12:00)
[2021-11-12] MEDS ORDERED: CONTRAST GIVEN. MC PRN (12:00)
[2021-11-12] MEDS ORDERED: IODIXANOL 320 MG/ML 100 ML VIAL. IART ONE (12:00)
--- NOTE | 2021-11-12 13:18 | PDOC ---
BRIEF OPERATIVE NOTE Date: Nov 12, 2021 Pre-Op Diagnosis bleeding duodenal ulcer Post-Op Diagnosis GDA pseudoaneurysm Procedure Performed Visceral angiogram with embolization of the GDA Surgeon Sharmin Welch EBL none Anesthesia Type: Conscious Sedation Specimens Obtained none Findings Small pseudoaneurysm from GDA at first part of duodenum, Coil embolization from distal GDA to GDA at right gastric artery, right groin access, Mynx device closure CHINO WELCH MD Nov 12, 2021 13:18
--- NOTE | 2021-11-12 13:39 | NUR ---
Patient has returned from IR after procedure. Minx dressing to right groin dry and intact, no shadowing evident. Patient to remain flat for 2 hours, pt verbalized understanding of this. Patient giving lemon [place] soda with nurse assist-has been instructed not to raise head to avoid pressure. BP 109/60. O2 sat 96%on room air. HR 82.
--- NOTE | 2021-11-12 13:58 | RAD ---
Procedure: Visceral angiogram and embolization 11/12/2021 Clinical Indication: Continued upper GI bleed. Patient underwent an EGD which demonstrated an approxi mately 1.5 cm ulcer in the proximal duodenum which cannot be effectively treated. Anesthesia: Local with moderate sedation. Continuous cardiopulmonary monitoring was preformed by inde pendent qualified nursing personnel. Please refer to the medical record for exact doses of medications utilized to achieve moderate sedati on. Conscious sedation was administered for 60 minutes. Cumulative DAP (exposure) 216 Gycm2 Contrast: 64 cc Visipaque Complications: None Consent: The procedure was explained in its entirety to the patient or the patients designated repre sentative by a member of the treatment team, including a discussion of the risks, benefits and common ly accepted alternatives to the procedure, as well as the expected consequences of no therapy whatsoe gama. Discussion of the risks included, but was not limited to, those that are most frequent and those that are rare but possibly severe or life-threatening, as well as the possibility of unforeseen comp lications. All questions were answered and informed consent was obtained. Sterility: All elements of maximal sterile barrier technique including the use of a cap, mask, steril e gown, sterile gloves, large sterile sheet, appropriate hand hygiene, and 2% chlorhexidine for cutan eous antisepsis (or acceptable alternative antiseptic per current guidelines) were followed for this procedure. Patient was placed in the supine position. The groins were prepped and draped in the appropriate ster ile fashion. A timeout was performed. Femoral head was localized with fluoroscopy. The common femora l artery was evaluated with ultrasound demonstrating a patent vessel amendable to access. A permanent image was stored. Access to the vessels obtained with a 5 1 needle under direct fluoroscopic visuali zation. The access was upsized to a micropuncture then a 5 [place] vascular sheath. The vascular sheat h was attached to continuous flush. A Iunikason wire was advanced into the abdominal aorta followed by a Sos 2 catheter. The catheter tip was placed in the SMA and DSA was performed. The catheter tip is i n placed in the celiac artery and DSA was performed. These images demonstrated patent visceral vascul ature without evidence of extravasation. A 2.8 [place] microcatheter was advanced into the GDA and DSA was performed. This demonstrated a irreg ular outpouching of contrast at the mid GDA concerning for a pseudoaneurysm. The gastroepiploic is wi juan patent. No evidence of extravasation. The microcatheter was advanced to the distal GDA above the gastroepiploic artery. A detachable 6 mm interlock coil was deployed. Following this 7 pushable micr ocoils were deployed along the GDA superiorly to the level of the right gastric artery origin. Interv al angiograms were performed between coils. A final angiogram post embolization was performed through the house catheter at the celiac artery demonstrating cessation of flow through the GDA with resolut ion of the previously seen pseudoaneurysm. The catheter was then removed and a DSA was performed thro [facility][note 3] the sheath of the common femoral artery demonstrating a patent vessel with a puncture amendable t o closure device. A mynx was successfully deployed for hemostasis and a sterile dressing was placed o gama top. Impression: 1. Visceral angiogram demonstrating an approximately 2 mm pseudoaneurysm at the mid GDA. 2. Coil embolization of the GDA with resolution of the pseudoaneurysm. Electronically signed by: Jules Welch (11/12/2021 1:56 PM) [id number]
--- NOTE | 2021-11-12 13:58 | RAD ---
Procedure: Visceral angiogram and embolization 11/12/2021 Clinical Indication: Continued upper GI bleed. Patient underwent an EGD which demonstrated an approxi mately 1.5 cm ulcer in the proximal duodenum which cannot be effectively treated. Anesthesia: Local with moderate sedation. Continuous cardiopulmonary monitoring was preformed by inde pendent qualified nursing personnel. Please refer to the medical record for exact doses of medications utilized to achieve moderate sedati on. Conscious sedation was administered for 60 minutes. Cumulative DAP (exposure) 216 Gycm2 Contrast: 64 cc Visipaque Complications: None Consent: The procedure was explained in its entirety to the patient or the patients designated repre sentative by a member of the treatment team, including a discussion of the risks, benefits and common ly accepted alternatives to the procedure, as well as the expected consequences of no therapy whatsoe gama. Discussion of the risks included, but was not limited to, those that are most frequent and those that are rare but possibly severe or life-threatening, as well as the possibility of unforeseen comp lications. All questions were answered and informed consent was obtained. Sterility: All elements of maximal sterile barrier technique including the use of a cap, mask, steril e gown, sterile gloves, large sterile sheet, appropriate hand hygiene, and 2% chlorhexidine for cutan eous antisepsis (or acceptable alternative antiseptic per current guidelines) were followed for this procedure. Patient was placed in the supine position. The groins were prepped and draped in the appropriate ster ile fashion. A timeout was performed. Femoral head was localized with fluoroscopy. The common femora l artery was evaluated with ultrasound demonstrating a patent vessel amendable to access. A permanent image was stored. Access to the vessels obtained with a 5 1 needle under direct fluoroscopic visuali zation. The access was upsized to a micropuncture then a 5 [place] vascular sheath. The vascular sheat h was attached to continuous flush. A ZeroFOXson wire was advanced into the abdominal aorta followed by a Sos 2 catheter. The catheter tip was placed in the SMA and DSA was performed. The catheter tip is i n placed in the celiac artery and DSA was performed. These images demonstrated patent visceral vascul ature without evidence of extravasation. A 2.8 [place] microcatheter was advanced into the GDA and DSA was performed. This demonstrated a irreg ular outpouching of contrast at the mid GDA concerning for a pseudoaneurysm. The gastroepiploic is wi juan patent. No evidence of extravasation. The microcatheter was advanced to the distal GDA above the gastroepiploic artery. A detachable 6 mm interlock coil was deployed. Following this 7 pushable micr ocoils were deployed along the GDA superiorly to the level of the right gastric artery origin. Interv al angiograms were performed between coils. A final angiogram post embolization was performed through the house catheter at the celiac artery demonstrating cessation of flow through the GDA with resolut ion of the previously seen pseudoaneurysm. The catheter was then removed and a DSA was performed thro [facility] the sheath of the common femoral artery demonstrating a patent vessel with a puncture amendable t o closure device. A mynx was successfully deployed for hemostasis and a sterile dressing was placed o gama top. Impression: 1. Visceral angiogram demonstrating an approximately 2 mm pseudoaneurysm at the mid GDA. 2. Coil embolization of the GDA with resolution of the pseudoaneurysm. Electronically signed by: Jules Welch (11/12/2021 1:56 PM) [id number]
[2021-11-13] VITALS (12 sets, daily range): BP systolic 107–139; BP diastolic 59–90
[2021-11-13] MEDS: PANTOPRAZOLE SODIUM IV DRIP 80 MG in IV NORMAL SALINE 100ML 100 ML IV SCH ×2 (00:08→10:30)
[2021-11-13] MEDS: IV NORMAL SALINE 1000ML BAG 1,000 ML IV SCH ×3 (05:16→18:01)
--- NOTE | 2021-11-13 08:49 | PDOC ---
SURGICAL PROGRESS NOTE DATE: 11/13/21 TIME: 08:47 Subjective Patient states he is feeling well would like to go home Vital Signs Vital Signs Date Time Temp Pulse Resp B/P (MAP) Pulse Ox O2 Delivery O2 Flow Rate FiO2 11/13/21 07:56 Room Air 11/13/21 07:00 97.6 89 18 107/62 (77) 98 97.6 11/12/21 13:10 2.0 I&O Intake and Output 11/13/21 07:00 Intake Total 2450 ml Output Total 4275 ml Balance -1825 ml Intake Oral 350 ml IV Total 2100 ml Output Urine Total 4175 ml Stool Total 100 ml PATIENT HAS A ROUSE: No General: Alert, Oriented X3, Cooperative, No acute distress Abdomen: Normal bowel sounds, Soft, No tenderness Labs Laboratory Tests Test 11/11/21 22:00 11/12/21 03:30 11/12/21 10:55 Hemoglobin 6.2 g/dL (13.0-17.5) 7.1 g/dL (13.0-17.5) 7.3 g/dL (13.0-17.5) Sodium Level 137 mmol/L (136-145) Potassium Level 3.6 mmol/L (3.5-5.1) Chloride Level 110 mmol/L (98-107) Carbon Dioxide Level 16 mmol/L (21-32) Anion Gap 11 (6-14) Blood Urea Nitrogen 40 mg/dL (8-26) Creatinine 1.2 mg/dL (0.7-1.3) Estimated GFR (Cockcroft-Gault) 61.1 Glucose Level 82 mg/dL (70-99) Calcium Level 7.0 mg/dL (8.5-10.1) Prothrombin Time 14.1 SEC (11.7-14.0) Prothromb Time International Ratio 1.1 (0.8-1.1) Activated Partial Thromboplast Time 32 SEC (24-38) Laboratory Tests Test 11/12/21 10:55 Hemoglobin 7.3 g/dL (13.0-17.5) Prothrombin Time 14.1 SEC (11.7-14.0) Prothromb Time International Ratio 1.1 (0.8-1.1) Activated Partial Thromboplast Time 32 SEC (24-38) Assessment/Plan Bleeding duodenal ulcer successful IR embolization Appears to be doing quite well No surgical plans at this time Justicifation of Admission Dx: Justifications for Admission: Justification of Admission Dx: Yes MARANDA SNYDER MD Nov 13, 2021 08:48
[2021-11-13 11:07] LABS: BASO # 0.1 x10^3/uL (0.0-0.2); BASO % 1 % (0-3); EOS # 0.1 x10^3/uL (0.0-0.7); EOS % 1 % (0-3); HEMATOCRIT 19.5 % (39.0-53.0); LYMPH # 0.5 x10^3/uL (1.0-4.8); LYMPH % 10 % (24-48); MEAN CORPUSCULAR HEMOGLOBIN 30 pg (25-35); MEAN CORPUSCULAR HGB CONC 33 g/dL (31-37); MEAN CORPUSCULAR VOLUME 91 fL (79-100); MONO # 0.5 x10^3/uL (0.0-1.1); MONO % 8 % (0-9); NEUT # 4.5 x10^3/uL (1.8-7.7); NEUT % 80 % (31-73); PLATELET COUNT 233 x10^3/uL (140-400); RED BLOOD COUNT 2.14 x10^6/uL (4.30-5.70); RED CELL DISTRIBUTION WIDTH 16.5 % (11.5-14.5); WHITE BLOOD COUNT 5.6 x10^3/uL (4.0-11.0)
[2021-11-13 11:21] LABS: HEMOGLOBIN 6.5 g/dL (13.0-17.5)
[2021-11-13 11:43] LABS: ALBUMIN 1.5 g/dL (3.4-5.0); ALBUMIN/GLOBULIN RATIO 0.6 (1.0-1.7); CALCIUM 7.1 mg/dL (8.5-10.1); CREATININE 1.1 mg/dL (0.7-1.3); GFR 67.6; POTASSIUM 3.9 mmol/L (3.5-5.1); TOTAL BILIRUBIN 0.2 mg/dL (0.2-1.0)
--- NOTE | 2021-11-13 12:18 | PDOC ---
Date of Service: DATE: 11/13/21 TIME: 12:12 Subjective: Subjective: Doesn't understand why he still needs to be here and why he can't eat. "That other doctor said everything was cool." Won't have any more clear liquids and also will not eat full liquids. Doesn't know about ostomy output - thinks bag last changed a couple days ago. Says he's leaving tomorrow no matter what. Objective: Objective: Called by nurse before I saw - pt wants to go home, also wants to advance diet. Transfusion ordered. Vital Signs: Vital Signs Date Time Temp Pulse Resp B/P (MAP) Pulse Ox O2 Delivery O2 Flow Rate FiO2 11/13/21 11:00 97.7 90 18 134/72 (92) 99 Room Air 97.7 11/12/21 13:10 2.0 Labs: Laboratory Tests Test 11/13/21 10:21 White Blood Count 5.6 x10^3/uL Red Blood Count 2.14 x10^6/uL Hemoglobin 6.5 g/dL Hematocrit 19.5 % Mean Corpuscular Volume 91 fL Mean Corpuscular Hemoglobin 30 pg Mean Corpuscular Hemoglobin Concent 33 g/dL Red Cell Distribution Width 16.5 % Platelet Count 233 x10^3/uL Neutrophils (%) (Auto) 80 % Lymphocytes (%) (Auto) 10 % Monocytes (%) (Auto) 8 % Eosinophils (%) (Auto) 1 % Basophils (%) (Auto) 1 % Neutrophils # (Auto) 4.5 x10^3/uL Lymphocytes # (Auto) 0.5 x10^3/uL Monocytes # (Auto) 0.5 x10^3/uL Eosinophils # (Auto) 0.1 x10^3/uL Basophils # (Auto) 0.1 x10^3/uL Sodium Level 139 mmol/L Potassium Level 3.9 mmol/L Chloride Level 110 mmol/L Carbon Dioxide Level 17 mmol/L Anion Gap 12 Blood Urea Nitrogen 24 mg/dL Creatinine 1.1 mg/dL Estimated GFR (Cockcroft-Gault) 67.6 BUN/Creatinine Ratio 22 Glucose Level 88 mg/dL Calcium Level 7.1 mg/dL Total Bilirubin 0.2 mg/dL Aspartate Amino Transf (AST/SGOT) 14 U/L Alanine Aminotransferase (ALT/SGPT) 9 U/L Alkaline Phosphatase 41 U/L Total Protein 4.0 g/dL Albumin 1.5 g/dL Albumin/Globulin Ratio 0.6 Imaging: Impression: 1. Visceral angiogram demonstrating an approximately 2 mm pseudoaneurysm at the mid GDA. 2. Coil embolization of the GDA with resolution of the pseudoaneurysm. PE: GEN: NAD LUNGS: diminished HEART: RRR ABD: NABS, S/ND/NT, ostomy bag w/ blackish liquid stool NEURO/PSYCH: A & O 3, agitated and anxious A/P: Severe esophagitis, large DU (biopsy pending) 2 mm pseudoaneurysm at mid GDA s/p coil Anemia - still requiring transfusions Melena - resolving? H/o rectal cancer w/ ostomy -- Attempted to reason w/ pt again re: inpatient monitoring, transfusions, slowly advancing diet... Discussed w/ nurse and Dr. Rojo - can have GI soft since refusing full liqu ids. Agree w/ transfusion. Change to PO PPI. Justicifation of Admission Dx: Justifications for Admission: Justification of Admission Dx: Yes SOHAM CHRISTIANSON Nov 13, 2021 12:18
--- NOTE | 2021-11-13 13:44 | NUR ---
SW following. Discussed with RN, pt from home with , room air, GI soft. Pt wanting to go home, stating he is going home tomorrow no matter what. Pt getting blood again today. No SW needs identified at this time. SW will continue to follow.
--- NOTE | 2021-11-13 15:01 | NUR ---
ist unit started. states he had no difficulty with lunch. blood started at 50 cchr
--- NOTE | 2021-11-13 15:07 | PATHOLOGY ---
[facility] Accession Number: [id number] . 01 Material submitted: . PART A: stomach - ANTRUM BIOPSY PART B: stomach - FUNDUS BIOPSY . 01 Clinical history: . GI BLEED EGD . 02 Diagnosis: A. Gastric biopsy, antrum: - Chronic gastritis, mild. . B. Gastric biopsy, gastric fundus: - Chronic gastritis, mild. . (IRENEM:emili; 11/13/2021) R 11/13/2021 1016 Local . 02 Comment: Sections of the gastric antral biopsy show congestion and mild chronic inflammation. A properly controlled immunoperoxidase stain for Helicobacter is negative for Helicobacter organisms. . Sections of the gastric fundus biopsy also show congestion and mild chronic inflammation. A properly controlled immunoperoxidase stain for Helicobacter is negative for Helicobacter organisms. . (BRE:emili; 11/13/2021) . . Special stain performed: Immunoperoxidase stain for Helicobacter on A1 and B1 . 02 Electronically signed: . Nigel Villanueva MD, Pathologist NPI- [id number] . 01 Gross description: . A. The specimen is received in formalin, labeled "Chapman, Yusef, antrum BX". Received is a segment of pale griffin tissue measuring 0.4 cm in maximum dimensions. The specimen is submitted entirely in cassette A1. . B. The specimen is received in formalin, labeled "Chapman, Yusef, fundus BX". Received are 2 segments of pale griffin tissue ranging in size from 0.2 cm to 0.6 cm in maximum dimensions. The specimen is submitted entirely in cassette B1.([facility]; 11/10/2021) [facility] 11/10/2021 1206 Local . 02 Pathologist provided ICD-10: K29.50 . 02 CPT . 249929, 713730, [id number] Specimen Comment: A courtesy copy of this report has been sent to [phone], [phone] Specimen Comment: [id number] Specimen Comment: Report sent to / DR ARGUELLO Specimen Comment: A duplicate report has been generated due to demographic updates. Performed at: [address] [facility] [address], [place] [id number] MD Ronni Veras MD Phone: [phone] Performed at: 02 [facility] [place] [address] [place], [place] [id number] MD Nigel Villanueva MD Phone: [phone]
[2021-11-13] MEDS: PANTOPRAZOLE 40 MG TABLET.DR. PO SCH (15:11)
--- NOTE | 2021-11-13 20:27 | PN ---
DATE: 11/13/2021 SUBJECTIVE: The patient is resting, slightly propped up in bed, in no apparent distress. He is very angry, would like to go home and explained to him that if his hemoglobin dropped, then he cannot go home unless he wants to sign against medical advice and that seemed within his right, but I do not think that is a safe discharge and I do not recommend it. When his lab work came back, his hemoglobin was 6.5. We did type and cross and we will transfuse him 1 unit of packed RBCs. He was seen by the Gastroenterology team and they have managed to convince him to stay and started him on a soft diet. PHYSICAL EXAMINATION: GENERAL: When I examined him, he was pale, not jaundiced, cyanosed. No lymphadenopathy. No thyromegaly. No jugular venous distention. No lower limb edema. VITAL SIGNS: His heart rate was 90, blood pressure was 134/72, temperature 97.7, respiratory rate was 18 and oxygen saturation was 99%. HEAD, EYES, EARS, NOSE, AND THROAT: Normocephalic, atraumatic. NECK: Supple. HEART: Normal first and second heart sounds. No gallop or murmur. CHEST: Clear to auscultation. No crepitation or rhonchi. ABDOMEN: Distended, soft with a colostomy bag with black stool in the left lower quadrant. NEUROLOGIC: He was grossly intact. His intake was 1750, output was 4150. LABORATORY DATA: As of this morning, his white cell count was 5600, hemoglobin 6.5, hematocrit 19.5, MCV 91 and platelet count 233,000 with the normal manual differential. His chemistry showed that his serum sodium was 139, potassium was 3.9, chloride was 110, bicarbonate 17, anion gap of 12, BUN 24, creatinine 1.1. Estimated GFR was 67 mL per minute. His glucose was 88, calcium was 7.1. Total bilirubin, AST, ALT, and alkaline phosphatase are all normal. Total protein is 4, albumin was 1.5. ASSESSMENT: 1. Acute blood loss anemia with hemoglobin and hematocrit had dropped from 10 to 6.9, for which he received a total of at least 5 units of packed RBCs. 2. He has an upper GI endoscopy, which showed that he has severe esophagitis as well as large 15 mm duodenal ulcers with no evidence of active bleeding. As he continued to bleed, he underwent visceral angiogram with embolization of the gastroduodenal artery done yesterday. 3. Nlyyd-be-uzqfiul kidney injury, resolving. His creatinine is down from 2.4 to 1.1. 4. Rectal carcinoma status post resection and colostomy. 5. The patient presented with periumbilical abdominal pain. 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 He was seen by the surgical team who did not recommend any surgical intervention. 6. The patient did complain of dizziness and a CT scan of the chest, abdomen and pelvis showed that the patient has left distal subclavian artery stenosis, for which he was seen by the vascular surgeon who did not recommend any intervention for the time being. 7. The patient has right lower lobe pulmonary nodule that could be metastatic in nature. PLAN: My plan is to repeat his H and H this evening and again tomorrow morning. His hemoglobin remained stable and after discussion with the Gastroenterology team, he can be discharged home. ROBERTO/RADHA DR: Suni TID: [id number]
[2021-11-14] MEDS: IV NORMAL SALINE 1000ML BAG 1,000 ML IV SCH (00:31)
[2021-11-14 03:00] VITALS: BP 121/66
[2021-11-14 08:00] VITALS: BP 129/82
[2021-11-14 08:27] LABS: CALCIUM 7.3 mg/dL (8.5-10.1); CREATININE 1.1 mg/dL (0.7-1.3); GFR 67.6; POTASSIUM 3.3 mmol/L (3.5-5.1)
[2021-11-14] MEDS: PANTOPRAZOLE 40 MG TABLET.DR. PO SCH (09:06)
[2021-11-14] MEDS ORDERED: PANT40TA77 PO (09:16)
--- NOTE | 2021-11-14 09:20 | PDOC ---
Date of Service: DATE: 11/14/21 TIME: 09:15 Subjective: Subjective: "What time am I leaving? I stopped bleeding and I'm eating." Has questions about what to do when he gets home. Objective: Vital Signs: Vital Signs Date Time Temp Pulse Resp B/P (MAP) Pulse Ox O2 Delivery O2 Flow Rate FiO2 11/14/21 08:00 97.9 89 18 129/82 (98) 99 Room Air 97.9 Labs: Laboratory Tests Test 11/13/21 10:21 11/13/21 18:37 11/14/21 06:25 White Blood Count 5.6 x10^3/uL Red Blood Count 2.14 x10^6/uL Hemoglobin 6.5 g/dL 8.4 g/dL 7.4 g/dL Hematocrit 19.5 % Mean Corpuscular Volume 91 fL Mean Corpuscular Hemoglobin 30 pg Mean Corpuscular Hemoglobin Concent 33 g/dL Red Cell Distribution Width 16.5 % Platelet Count 233 x10^3/uL Neutrophils (%) (Auto) 80 % Lymphocytes (%) (Auto) 10 % Monocytes (%) (Auto) 8 % Eosinophils (%) (Auto) 1 % Basophils (%) (Auto) 1 % Neutrophils # (Auto) 4.5 x10^3/uL Lymphocytes # (Auto) 0.5 x10^3/uL Monocytes # (Auto) 0.5 x10^3/uL Eosinophils # (Auto) 0.1 x10^3/uL Basophils # (Auto) 0.1 x10^3/uL Sodium Level 139 mmol/L 138 mmol/L Potassium Level 3.9 mmol/L 3.3 mmol/L Chloride Level 110 mmol/L 109 mmol/L Carbon Dioxide Level 17 mmol/L 17 mmol/L Anion Gap 12 12 Blood Urea Nitrogen 24 mg/dL 22 mg/dL Creatinine 1.1 mg/dL 1.1 mg/dL Estimated GFR (Cockcroft-Gault) 67.6 67.6 BUN/Creatinine Ratio 22 Glucose Level 88 mg/dL 93 mg/dL Calcium Level 7.1 mg/dL 7.3 mg/dL Total Bilirubin 0.2 mg/dL Aspartate Amino Transf (AST/SGOT) 14 U/L Alanine Aminotransferase (ALT/SGPT) 9 U/L Alkaline Phosphatase 41 U/L Total Protein 4.0 g/dL Albumin 1.5 g/dL Albumin/Globulin Ratio 0.6 Material submitted: . PART A: stomach - ANTRUM BIOPSY PART B: stomach - FUNDUS BIOPSY Clinical history: . GI BLEED EGD Diagnosis: A. Gastric biopsy, antrum: - Chronic gastritis, mild. B. Gastric biopsy, gastric fundus: - Chronic gastritis, mild. Comment: Sections of the gastric antral biopsy show congestion and mild chronic inflammation. A properly controlled immunoperoxidase stain for Helicobacter is negative for Helicobacter organisms. Sections of the gastric fundus biopsy also show congestion and mild chronic inflammation. A properly controlled immunoperoxidase stain for Helicobacter is negative for Helicobacter organisms. 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 No NSAIDs. Justicifation of Admission Dx: Justifications for Admission: Justification of Admission Dx: Yes SOHAM CHRISTIANSON Nov 14, 2021 09:20
[2021-11-14] MEDS ORDERED: POTASSIUM CHLORIDE 20 MEQ TABLET.ER. PO ONE (09:30)
--- NOTE | 2021-11-14 09:57 | DS ---
DATE OF DISCHARGE: 11/14/2021 HOSPITAL COURSE: The patient is a 65-year-old male patient who presented initially to [facility] Emergency Room with a complaint of dizziness as well as recurrent bouts of nausea and vomiting. He was apparently extensively investigated and was found to have left distal subclavian artery stenosis. He was also found to have acute kidney injury with a creatinine that has risen up to 2.4 mg/dL. Therefore, he was transferred to [facility] to consult the vascular surgeon and as he did receive contrast before they realized that his kidney was abnormal. We did start him on IV fluid. I did consult the side hemmer also. By the time when he came to the [facility], he developed acute blood loss anemia. His hemoglobin has dropped down from 10-5.9. He has received a total of 5 units of packed RBCs. He underwent upper GI endoscopy, which he was found to have severe esophagitis as well as large 15 mm duodenal ulcer. Unfortunately, despite treatment with Protonix drip, he continued to bleed and he was seen by the interventional radiologist and underwent coil embolization of his gastroduodenal artery. The vascular surgeon did not recommend any intervention for his left subclavian artery stenosis that is asymptomatic. His kidney function has steadily improved and now back to 1.1. His creatinine is down to 1.1. His hemoglobin has somewhat stabilized and this morning it was 7.4. His kidney function as of this morning showed a serum sodium 138, potassium 3.3, chloride 109, bicarbonate 17, anion gap of 12, BUN 22, creatinine 1.1, estimated GFR was 67 mL per minute. His glucose was 93 and calcium was 7.3. The patient was discharged home to continue on Protonix 40 mg once a day for a month with 2 refills, amlodipine 10 mg once a day, lisinopril 20 mg once a day. He was on cholecalciferol, vitamin D 25 mcg daily. The patient was given clear instructions that he should go to the nearest Emergency Room if started complaining of dizziness and lightheadedness and has blood in his colostomy bag. His CT scan of the chest showed that he has a nodule in the right lower lobe that could be metastatic or primary and therefore, I gave him a copy of his CT scan report to show with his primary care physician at the [place]. I did peer financial counselor him for smoking and also advised him to avoid all nonsteroidal anti-inflammatory medications as probably the cause of his peptic ulcer disease. FINAL DISCHARGE DIAGNOSES: 1. Acute blood loss anemia, likely from bleeding duodenal ulcer, treated with proton pump inhibitor as well as coil embolization of the gastroduodenal artery. 2. Acute on chronic kidney injury, resolved. His creatinine came down from 2.4-1.1. 3. Rectal carcinoma, status post resection and colostomy. 4. The patient also presented with periumbilical abdominal pain. 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 He was seen by the surgical team who did not recommend any surgical intervention. 5. The patient did complain of dizziness and CT scan of the chest, abdomen and pelvis showed that the patient has left distal subclavian artery stenosis, for which he was seen by the vascular surgeon who did not recommend any intervention for the time being. 6. The patient has right lower lobe pulmonary nodule that could be metastatic in nature. I gave him a copy of the report and advised him to follow up with his primary care physician and might require a PET scan and follow up with the oncologist. JACQUELINE DR: Suni TID: [id number]
--- NOTE | 2021-11-14 10:50 | NUR ---
SW following. Discussed with RN, discharge order for home with self care. RN advised no SW needs.
--- NOTE | 2021-11-14 11:20 | NUR ---
Patient discharge education given. Patient was mildly perceptive of learning the discharge education. IV and telemonitor discontinued. This RN wheeled patient to main entrance in private vehicle.
== END 2021-11-14 11:25 | disposition home or self-care (01) | DRG 356 ==
LOC: 5 NORTH 17:04
PROVIDERS: ADMIT Internal Medicine; ATTEND Internal Medicine
PROC: 30233N1 Transfusion of Nonautologous Red Blood Cells into Peripheral Vein, Percutaneous Approach (ICD-10-PCS; principal; 2021-11-08)
PROC: 0DB68ZX Excision of Stomach, Via Natural or Artificial Opening Endoscopic, Diagnostic (ICD-10-PCS; 2021-11-09)
PROC: 04L33DZ Occlusion of Hepatic Artery with Intraluminal Device, Percutaneous Approach (ICD-10-PCS; 2021-11-12)
PROC: B4101ZZ Fluoroscopy of Abdominal Aorta using Low Osmolar Contrast (ICD-10-PCS; 2021-11-12)
DX: K20.91 Esophagitis, unspecified with bleeding (principal); K26.4 Chronic or unspecified duodenal ulcer with hemorrhage; E43 Unspecified severe protein-calorie malnutrition; D62 Acute posthemorrhagic anemia; N17.9 Acute kidney failure, unspecified; Z93.3 Colostomy status; I72.8 Aneurysm of other specified arteries; D75.839 Thrombocytosis, unspecified; E86.0 Dehydration; F17.210 Nicotine dependence, cigarettes, uncomplicated; I10 Essential (primary) hypertension; I70.8 Atherosclerosis of other arteries; J43.9 Emphysema, unspecified; K43.5 Parastomal hernia without obstruction or gangrene; K44.9 Diaphragmatic hernia without obstruction or gangrene; K45.8 Other specified abdominal hernia without obstruction or gangrene; K76.9 Liver disease, unspecified; Z20.822 Contact with and (suspected) exposure to COVID-19; Z79.899 Other long term (current) drug therapy; Z80.9 Family history of malignant neoplasm, unspecified; Z85.048 Personal history of other malignant neoplasm of rectum, rectosigmoid junction, and anus; Z90.49 Acquired absence of other specified parts of digestive tract; Z68.21 Body mass index [BMI] 21.0-21.9, adult
CPT/HCPCS: 36245; 36415; 36430; 37244; 43239; 75726; 76937; 80048; 80053; 82274; 85018; 85025; 85027; 85610; 85730; 86850; 86900; 86901; 86920; 88305; 88342; 90471; 90686; 99152; 99153; C1713; C1760; C1769; C1887; C1892; C1894; C9113; G0269; J1644; J2250; J2405; J2704; J3010; J3490; J7030; J7120; P9016; Q9967; G0378